=== PATIENT | male | born 1950 | race Caucasian/White ===

== ENCOUNTER → 2018-01-21 | Outpatient (CLI) | payer MEDICARE ==
[2018-01-21 07:13] LABS: Basophils % (A) 1 %; Eosinophils # (A) 0.2 k/uL (0-0.7); Eosinophils % (A) 3 %; HCT 46.5 % (39.0-53.0); HGB 14.9 gm/dL (13.0-17.5); Lymphocytes # (A) 1.5 k/uL (1.0-4.8); Lymphocytes % (A) 23 %; MCH 29.8 pg (25.0-35.0); MCV 93.1 fL (80.0-100.0); Monocytes # (A) 0.6 k/uL (0-1.0); Monocytes % (A) 9 %; Neutrophils # (A) 3.9 k/uL (1.3-7.7); Neutrophils % (A) 62 %; Platelet Count 158 k/uL (150-450); RBC 4.99 m/uL (4.30-5.90); RDW 12.8 % (11.5-15.5); WBC 6.3 k/uL (3.8-10.6)
[2018-01-21 07:18] LABS: ALT 32 U/L (21-72); AST 32 U/L (17-59); Albumin 4.2 g/dL (3.5-5.0); Alkaline Phosphatase 60 U/L (38-126); Anion Gap 6 mmol/L; Blood Urea Nitrogen 16 mg/dL (9-20); Calcium 9.4 mg/dL (8.4-10.2); Carbon Dioxide 34 mmol/L (22-30); Chloride 101 mmol/L (98-107); Cholesterol 194 mg/dL (<200); Glucose 91 mg/dL (74-99); HDL Cholesterol 66 mg/dL (40-60); LDL Cholesterol,Calculated 113 mg/dL (0-99); Potassium 4.1 mmol/L (3.5-5.1); Sodium 141 mmol/L (137-145); Total Bilirubin 0.6 mg/dL (0.2-1.3); Total Protein 6.8 g/dL (6.3-8.2); Triglycerides 76 mg/dL (<150)
[2018-01-21 07:51] LABS: Appearance,Urine Clear (Clear); Bilirubin,Urine Negative (Negative); Blood,Urine Negative (Negative); Color,Urine Light Yellow; Glucose,Urine (UA) Negative (Negative); Ketones,Urine Negative (Negative); Leukocyte Esterase,Urine Negative (Negative); Nitrite,Urine Negative (Negative); Protein,Urine Negative (Negative); Specific Gravity,Urine 1.011 (1.001-1.035); Urobilinogen,Urine <2.0 mg/dL (<2.0)
--- NOTE | 2018-01-21 13:30 | CT ---
EXAMINATION TYPE: CT abdomen pelvis w con DATE OF EXAM: 01/21/2018 COMPARISON: HISTORY: RLQ and groin pain for [address] DLP: 575.8 mGycm CONTRAST: CT scan of the abdomen and pelvis is performed with Oral Contrast and with IV Contrast, patient injec jazmine with 100 mL of Isovue 300. FINDINGS: LUNG BASES-: No visible nodule. No infiltrate. Cardiomegaly. LIVER/GB: There is a gallbladder polyp or soft stone noted. No space occupying hepatic lesion. Biju iary tree is of normal caliber. PANCREAS: No inflammation. No distinct mass. SPLEEN: No splenic enlargement. No lesion seen. ADRENALS: No nodule. No thickening. KIDNEYS/BLADDER: No hydronephrosis. No nephrolithiasis. Multiple simple appearing hepatic cysts are noted the largest within the upper pole of the right kidney measures 3.1 cm. Urinary bladder grossly unremarkable. BOWEL: There is evidence of an appendicolith without inflammatory change of the appendix. Appendicoli th measures 6.6 mm. Normal bowel caliber. No inflammation. Sigmoid diverticulosis without diverticu litis. GENITAL ORGANS: Enlargement of the prostate gland. LYMPH NODES: No greater than 1cm abdominal or pelvic lymph nodes are appreciated. AORTA: No significant abnormality. OSSEOUS STRUCTURES: No significant abnormality is seen. OTHER: Fat-containing bilateral inguinal hernias. IMPRESSION: 1. Appendicolith without evidence for inflammatory change of the appendix at this time. 2. Diverticulosis without diverticulitis. 3. Soft gallstone versus gallbladder polyp. 4. Prostate gland enlargement.
== END | disposition home or self-care (01) ==
LOC: RADCTMAIN 06:45
PROVIDERS: ATTEND Internal Medicine
DX: K57.30 Diverticulosis of large intestine without perforation or abscess without bleeding (principal); N40.0 Benign prostatic hyperplasia without lower urinary tract symptoms; K38.1 Appendicular concretions; R10.31 Right lower quadrant pain; E78.00 Pure hypercholesterolemia, unspecified
CPT/HCPCS: 80061; 80053; 85025; 81003; 74177; Q9967

== ENCOUNTER 2018-05-18 20:39 | Inpatient (IN) | payer MEDICARE ==
[2018-05-18] MEDS ORDERED: METOPROLOL TARTRATE 5 MG/5 ML VIAL IVP STA (20:56)
[2018-05-18] MEDS ORDERED: CLOPIDOGREL 75 MG TAB PO STA (20:57)
[2018-05-18] MEDS ORDERED: ASPIRIN 81 MG PO STA (20:57)
[2018-05-18] MEDS ORDERED: ATORVASTATIN 80 MG TAB PO STA (20:57)
[2018-05-18] MEDS ORDERED: HEPARIN SODIUM,PORCINE 5,000 UNIT/ML 1 ML VIAL IV STA (20:57)
[2018-05-18] MEDS ORDERED: NITROGLYCERIN-D5W PMX 50 MG in DEXTROSE/WATER 1 250ML.BAG IV ONE (21:12)
[2018-05-18 21:14] LABS: HCT 49.2 % (39.0-53.0); HGB 16.5 gm/dL (13.0-17.5); MCH 31.5 pg (25.0-35.0); MCHC 33.6 g/dL (31.0-37.0); MCV 93.7 fL (80.0-100.0); Mean Platelet Volume 9.3; Platelet Count 165 k/uL (150-450); RBC 5.25 m/uL (4.30-5.90); RDW 12.7 % (11.5-15.5); WBC 7.6 k/uL (3.8-10.6)
[2018-05-18 21:23] LABS: Prothrombin Time 10.2 sec (9.0-12.0)
[2018-05-18 21:25] LABS: ALT 53 U/L (21-72); AST 64 U/L (17-59); Albumin 4.5 g/dL (3.5-5.0); Alkaline Phosphatase 64 U/L (38-126); Anion Gap 6 mmol/L; Blood Urea Nitrogen 25 mg/dL (9-20); Calcium 9.8 mg/dL (8.4-10.2); Carbon Dioxide 30 mmol/L (22-30); Chloride 103 mmol/L (98-107); Glucose 130 mg/dL (74-99); Potassium 4.2 mmol/L (3.5-5.1); Sodium 139 mmol/L (137-145); Total Bilirubin 0.6 mg/dL (0.2-1.3); Total Protein 7.5 g/dL (6.3-8.2)
--- NOTE | 2018-05-18 21:25 | ED ---
Chest Pain HPI - General Chief Complaint: Chest Pain Stated Complaint: Chest Pain Time Seen by Provider: 05/18/18 20:39 Source: patient, family, RN notes reviewed Mode of arrival: ambulatory Limitations: no limitations - History of Present Illness Initial Comments: This is a 67-year-old male with a history of PVCs but no history of heart or lung disease he's a nonsmoker who is very active who does state he just [place] present the last week who states he started developing retrosternal chest discomfort around 8 PM this evening he came to the emergency department to get evaluated. It was 5/10 severity while in the triage jasso he collapsed was brought back trauma room #1 reveals found to be in a ventricular fibrillation arrest. CPR was initiated prior to this. Established that he was in ventricular fibrillation he was cardioverted 21 with CPR continued briefly until the patient awoke. He did remain awake alert oriented 4 afterwards. He states the pain was 5/10 prior to this he had no problems earlier today or earlier in the week. He had no recent fevers chills nausea vomiting sweats or other symptoms. MD Complaint: chest pain - Related Data Home Medications Medication Instructions Recorded Confirmed Aspirin [[place] Aspirin EC] 81 mg PO DAILY 05/18/18 05/18/18 Famotidine [Pepcid AC] 10 mg PO DAILY 05/18/18 05/18/18 NIFEdipine XL [Procardia XL] 30 mg PO DAILY 05/18/18 05/18/18 Simvastatin [Zocor] 40 mg PO HS 05/18/18 05/18/18 Allergies Allergy/AdvReac Type Severity Reaction Status Date / Time No Known Allergies Allergy Verified 05/18/18 21:13 Review of Systems ROS Statement: Those systems with pertinent positive or pertinent negative responses have been documented in the HPI. ROS Other: All systems not noted in ROS Statement are negative. EKG Findings - EKG Results: EKG: interpreted by [facility]A ( ST elevation seen in the anterior leads. The rate was 150. Interval 82 QRS 162 QT since QTC 302/477) Past Medical History Past Medical History: No Reported History History of Any Multi-Drug Resistant Organisms: None Reported Past Surgical History: Hernia Repair Past Psychological History: No Psychological Hx Reported Smoking Status: Never smoker Past Alcohol Use History: Occasional Past Drug Use History: None Reported General Exam - General Exam Comments Initial Comments: This is a well-developed well-nourished awake alert oriented 3 male Limitations: no limitations General appearance: alert, in no apparent distress Head exam: Present: atraumatic, normocephalic, normal inspection Eye exam: Present: normal appearance, PERRL, EOMI. Absent: scleral icterus, conjunctival injection, periorbital swelling ENT exam: Present: normal exam, mucous membranes moist Neck exam: Present: normal inspection. Absent: tenderness, meningismus, lymphadenopathy Respiratory exam: Present: normal lung sounds bilaterally. Absent: respiratory distress, wheezes, rales, rhonchi, stridor Cardiovascular Exam: Present: regular rate, normal rhythm, normal heart sounds. Absent: systolic murmur, diastolic murmur, rubs, gallop, clicks GI/Abdominal exam: Present: soft, normal bowel sounds. Absent: distended, tenderness, guarding, rebound, rigid Extremities exam: Present: normal inspection, full ROM, normal capillary refill. Absent: tenderness, pedal edema, joint swelling, calf tenderness Back exam: Present: normal inspection Neurological exam: Present: alert, oriented X3, CN II-XII intact Psychiatric exam: Present: normal affect, normal mood Skin exam: Present: warm, dry, intact, normal color. Absent: rash Course Vital Signs 05/18/18 05/18/18 05/18/18 20:43 21:10 21:25 Temperature 98.3 F Pulse Rate 77 70 68 Pulse Rate [ Designer/Writer ] Respiratory 18 19 19 Rate Blood Pressure 199/108 142/95 142/100 O2 Sat by Pulse 98 96 96 Oximetry 05/18/18 05/18/18 21:27 21:30 Temperature Pulse Rate 69 Pulse Rate [ 69 Designer/Writer ] Respiratory 18 Rate Blood Pressure 140/91 O2 Sat by Pulse 96 Oximetry - Reevaluation(s) Reevaluation #1: 05/18/18 21:22 Repeat EKG was performed showed a sinus rhythm of 93. Interval 142 QRS 110 QT since QTC 354/440 right atrial enlargement pulmonary disease pattern evidence of ST elevation in the V leads Chest Pain MDM - [facility] Did reevaluate the patient multiple occasions. He remains awake and alert his heart rate has normalized. He still demonstrates ST elevation on the monitor. Pain was down from 532/10. No diaphoresis no other abnormalities this time. Critical Care Time Critical Care Time: Yes Critical Care Time: 35 minutes of critical care time which includes initial presentation with evaluation and CPR with defibrillation, history physical labs x-rays multiple re -evaluations patient response to therapy discussion with the cardiac service, Dr. Durán, discussed with Dr. Bran, discussion with multiple T members and with some family. Also documentation the above. Disposition Clinical Impression: Ventricular fibrillation, ST elevation myocardial infarction (STEMI) Disposition: ADMITTED IP TO THIS [facility] Condition: Serious Referrals: Beny Hernandez MD [Primary Care Provider] - 1-2 days
--- NOTE | 2018-05-18 21:30 | XR ---
EXAMINATION TYPE: XR chest 1V portable DATE OF EXAM: 05/18/2018 COMPARISON: NONE HISTORY: Chest pain TECHNIQUE: Single frontal view of the chest is obtained. FINDINGS: There is no heart failure nor confluent pneumonic infiltrate. Costophrenic angles are anne r. There are chest leads. Bony thorax appears intact. IMPRESSION: No active cardiopulmonary disease.
[2018-05-18 21:48] LABS: Creatine Kinase MB 1.4 ng/mL (0.0-2.4); Troponin I 0.022 ng/mL (0.000-0.034)
[2018-05-18] MEDS ORDERED: MIDAZOLAM 2 MG/2 ML VIAL IVP ONE (21:48)
[2018-05-18] MEDS ORDERED: LIDOCAINE 1% 20 ML VIAL (10MG/ML) FOR IV START SQ ONE (21:49)
[2018-05-18] MEDS ORDERED: BIVALIRUDIN BOLUS 250 MG/50 ML IV ONE (21:53)
[2018-05-18] MEDS ORDERED: BIVALIRUDIN 250 MG in SODIUM CHLORIDE 0.9% 50 ML IV ONE (21:53)
[2018-05-18] MEDS ORDERED: IV FLUID CONTINUATION 450 ML IV ONE (21:57)
[2018-05-18] MEDS ORDERED: TICAGRELOR 90 MG TAB PO ONE (22:03)
[2018-05-18] MEDS ORDERED: NITROGLYCERIN 1000MCG/10ML SYRINGE INTRACORON ONE (22:06)
[2018-05-18] MEDS: MORPHINE SULFATE 4 MG/ML SYRINGE IVP ONE ×2 (22:08→22:38)
[2018-05-18] MEDS ORDERED: niCARdipine Syringe (1,000 mcg/10 mL) INTRACORON ONE (22:11)
[2018-05-18] MEDS ORDERED: IOPAMIDOL-370 125ML BTL INJ ONE (22:17)
[2018-05-18] MEDS ORDERED: IOPAMIDOL-370 100ML BTL INJ ONE (22:31)
[2018-05-18] MEDS ORDERED: NITROGLYCERIN SL TABS 0.4 MG TAB SUBLINGUAL PRN (23:04)
[2018-05-18] MEDS ORDERED: RX INFO: IV CONTRAST WAS GIVEN 1 EACH MISC MISCELLANE PRN (23:04)
[2018-05-18] MEDS ORDERED: MAG HYDROX/AL HYDROX/SIMETH 30 ML CUP PO PRN (23:04)
[2018-05-18] MEDS ORDERED: ZOLPIDEM 5 MG TAB PO PRN (23:04)
[2018-05-18] MEDS ORDERED: ATROPINE SULFATE 0.1 MG/ML 10ML SYRINGE IV PRN (23:04)
[2018-05-18 23:34] VITALS: BMI 23.5
[2018-05-18 23:42] LABS: Glucose,Whole Blood 123 mg/dL (75-99)
[2018-05-19] MEDS: ACETAMINOPHEN TAB 500 MG TAB PO PRN ×3 (01:20→20:40)
[2018-05-19 03:51] LABS: Basophils % (A) 0 %; Eosinophils # (A) 0.1 k/uL (0-0.7); Eosinophils % (A) 1 %; HCT 41.8 % (39.0-53.0); HGB 13.6 gm/dL (13.0-17.5); Lymphocytes # (A) 0.8 k/uL (1.0-4.8); Lymphocytes % (A) 8 %; MCHC 32.5 g/dL (31.0-37.0); MCV 95.3 fL (80.0-100.0); Mean Platelet Volume 8.8; Monocytes # (A) 0.6 k/uL (0-1.0); Monocytes % (A) 6 %; Neutrophils # (A) 8.1 k/uL (1.3-7.7); Neutrophils % (A) 84 %; Platelet Count 143 k/uL (150-450); RBC 4.39 m/uL (4.30-5.90); RDW 12.8 % (11.5-15.5); WBC 9.7 k/uL (3.8-10.6)
[2018-05-19 04:05] LABS: Anion Gap 6 mmol/L; Blood Urea Nitrogen 23 mg/dL (9-20); Carbon Dioxide 28 mmol/L (22-30); Chloride 102 mmol/L (98-107); Glucose 156 mg/dL (74-99); Potassium 3.8 mmol/L (3.5-5.1); Sodium 136 mmol/L (137-145)
[2018-05-19] MEDS ORDERED: Potassium Replacement Protocol 1 EACH MISC MISCELLANE PRN (05:44)
[2018-05-19] MEDS ORDERED: POTASSIUM CHLORIDE ER 20 MEQ TAB.ER PO SCH (06:00)
[2018-05-19] MEDS: SODIUM CHLORIDE 0.9% 1,000 ML IV SCH ×2 (06:22→12:35)
--- NOTE | 2018-05-19 07:14 | CC ---
CARDIAC CATHETERIZATION REPORT DATE OF SERVICE: 05/18/2018 PROCEDURE: 1. Left heart catheterization and coronary angiography. 2. PTCA and stenting of a totally occluded mid left anterior descending coronary artery performed in the setting of an acute ST-elevation AR with a drug-eluting stent. Reperfusion accomplished in 82 minutes. 3. PTCA and stenting of mid circumflex coronary artery with a drug-eluting stent. PERFORMED BY: Dr. Lovely Durán. The moderate conscious sedation time for the procedure was 61 minutes. Patient was administered a combination of Versed, fentanyl and Benadryl and his oxygen saturation, hemodynamics and EKG were monitored closely. 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 He was advised prompt cardiac catheterization and brought in for the procedure expeditiously. PROCEDURE NOTE: Under local anesthesia and strict aseptic precautions, a 6-Ukrainian introducer was placed in the right femoral artery. I started out with a standard left Thierno catheter but the guide support was insufficient. I switched over to a XBLAD 4.5 guide catheter. With this I selectively cannulated the left coronary artery. Coronary angiography revealed that the LAD was totally occluded after diagonal branch, which was diseased. There was also a significant circumflex lesion. I performed intervention first of the LAD. Using a run-through wire, I crossed the lesion. A predilatation of the total occlusion was performed with a 2.5 caliber 12 mm long Trek balloon. Subsequently the patient had significant ST elevation and chest pain with a lot of thrombus. The patient received Angiomax bolus and infusion. He also received 180 mg of Brilinta. I post dilated the stented area with a 3.5 caliber 12 mm long NC Trek balloon at 12 atmospheres. Excellent angiographic result with a CYRIL-3 flow was achieved. Patient was hemodynamically stable. His chest pain came down to a level of 1 to 2. He was feeling well. Hemodynamically stable. I then turned my attention to the circumflex which was a 99% lesion. The same wire was advanced and I kept the wire distal to the 95% stenosis. Predilatation was performed with a 2.5 caliber 12 mm balloon. I then deployed a 8 mm 2.75 caliber Xience stent and deployed this at 12 atmospheres. Excellent angiographic result was achieved. Patient had mild chest discomfort but no EKG changes. Subsequently I performed coronary angiography of the right coronary artery, which did not have significant disease and I also checked LV pressures with a pigtail catheter. Patient tolerated procedure well. The sheath was taken out and a Perclose device used to secure hemostasis. Because of mild oozing, I applied a FemoStop as well. The patient was sent to the ICU in a stable condition. Findings and results were discussed with the patient as well as his niece who was here and also I spoke to his by telephone. CARDIAC CATHETERIZATION FINDINGS: Left ventricular end-diastolic pressure was about 12 mmHg without any gradient across the aortic valve. CORONARY ANGIOGRAPHY FINDINGS: Coronary angiography findings revealed that left main coronary artery was widely patent without significant disease and bifurcated into a LAD and circumflex. Left anterior descending coronary artery was totally occluded in the mid portion after the origin of the diagonal branch that has about a 50% to 60% lesion with sluggish flow. Circumflex vessel was nondominant, has a single obtuse marginal that was tortuous, had 30% to 40% multiple narrowings, but a focal 95% stenosis was noted in the midportion, which was quite significant. Beyond it, there were 2 good-sized branches. There was a groove branch and also left atrial circumflex branch with minor irregularities. Right coronary artery was a very dominant vessel had about 35% in the proximal one third. Distally it bifurcated into a PDA and PLV, both of which supply a sizable amount of myocardium. No significant disease was noted in the dominant RCA. LEFT VENTRICULOGRAM: Left ventriculogram was not performed. LV pressures were normal without any gradient across the aortic valve. PCI of LAD was performed with a drug-eluting stent with excellent angiographic result. PCI of mid circumflex was performed with a drug-eluting stent with excellent angiographic result. MMODL / IJN: [id number] /
--- NOTE | 2018-05-19 07:20 | CONS ---
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 This gentleman is quite active, has no significant limitations at all. He hunts and does play hockey on a regular basis. He has hypertension and hypercholesterolemia for which he takes Procardia and simvastatin. He has had a stress test a few years ago that he cannot recall and it was normal. About a week ago he went [employer] hunting without any problems. Today while he was sitting and talking to his son on the phone, he developed uncomfortable feeling in the chest that seemed to persist. He came into the emergency room and while he was in the ER at the triage jasso he collapsed, was in ventricular fibrillation, was immediately resuscitated, shocked, had a CPR and subsequent EKG revealed anterior ST elevation and I was notified. I evaluated him in the emergency room. At the time of my evaluation, his pain was about 6/10. He was hemodynamically stable. EKG revealed anterior ST elevation. He indicated to me that prior to about 8:00 this evening, he did not have any chest discomfort. This was a sudden occurrence. He has a fairly active person. He has no other issues at this time. In February, he had a hernia operation performed. PAST MEDICAL HISTORY: 1. Hypertension. 2. Hyperlipidemia. 3. Status post bilateral inguinal hernia repair performed in February or so. MEDICATIONS: Medications include Procardia and simvastatin. Other medication details are unavailable. PHYSICAL EXAMINATION: On examination, blood pressure is 138/70, pulse rate was about 70 per minute. HEENT: Unremarkable. Fundus was not examined by me. Neck is supple. No JVD. I do not hear a carotid bruit. There is no thyromegaly. Heart exam reveals S1, S2 heard normally without a rub, murmur or gallop. Lungs are clear. Abdomen is soft, nontender. Lower extremities reveal normal pulses. No edema. Central nervous system is grossly within normal limits. EKG revealed sinus mechanism with anterior ST elevation suggestive of acute ST- elevation LA. IMPRESSION: 1. Acute anterior ST-elevation myocardial infarction. 2. Hypertension. 3. Hyperlipidemia. RECOMMENDATION: I am recommending immediate cardiac cath and PCI and proceeded to perform this expeditiously. MMODL / IJN: [id number] /
--- NOTE | 2018-05-19 07:59 | PN ---
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 On presentation to the emergency room, had a ventricular fibrillation cardiac arrest requiring CPR. He was found to have significant ST-segment elevation myocardial infarction, underwent cardiac catheterization, angioplasty and stenting by Dr. Lovely Durán and underwent stenting of the LAD as well as the left circumflex. He is doing well this morning. He has chest discomfort that is musculoskeletal on the right side. He is in sinus mechanism. There is no significant ventricular ectopic activity. His blood pressure is stable. His breathing is stable. He continues to be on aspirin once a day, Lipitor 80 mg daily, Brilinta 90 mg twice a day, lisinopril 10 mg daily, metoprolol tartrate 12.5 mg twice a day. PHYSICAL EXAMINATION: Blood pressure 136/80 with a heart rate in the 60s. LUNGS: Clear. HEART: Regular rate and rhythm. S1, S2. No S3. No rub appreciated. ABDOMEN: Soft, nontender. EXTREMITIES: No edema. Right groin hematoma. LAB DATA: Revealed BUN and creatinine 23 and 0.75. Troponin 66.7, hemoglobin 13.6. IMPRESSION: 1. Status post acute anterior myocardial infarction complicated by ventricular fibrillation cardiac arrest. 2. Status post stenting of left circumflex. 3. Hyperlipidemia. RECOMMENDATION: I will add to his regimen spironolactone 25 mg daily. Continue with his medical regimen. Obtain an echocardiogram with Doppler and depending on his progress, further recommendation will be made. MMODL / IJN: [id number] /
[2018-05-19] MEDS: SPIRONOLACTONE 25 MG TAB PO SCH (09:25)
[2018-05-19] MEDS: LISINOPRIL 10 MG TAB PO SCH (09:25)
[2018-05-19] MEDS: METOPROLOL TARTRATE 25 MG TAB PO SCH ×2 (09:25→20:39)
[2018-05-19] MEDS: ASPIRIN 81 MG PO SCH (09:25)
[2018-05-19] MEDS: TICAGRELOR 90 MG TAB PO SCH ×2 (09:25→20:40)
--- NOTE | 2018-05-19 10:09 | ECHOF ---
Referral Reason:Acute Ant STEMI S/P LAD,LCX PCI MEASUREMENTS -------- HEIGHT: 182.9 cm WEIGHT: 74.4 kg BP: 113/57 RVIDd: 2.5 cm (< 3.3) IVSd: 1.5 cm (0.6 - 1.1) LVIDd: 3.5 cm (3.9 - 5.3) LVPWd: 1.5 cm (0.6 - 1.1) IVSs: 1.5 cm LVIDs: 3.0 cm LVPWs: 1.6 cm LAESV Index (A-L): 27.13 ml/m Ao Diam: 3.9 cm (2.0 - 3.7) AV Cusp: 1.9 cm (1.5 - 2.6) LA Diam: 2.6 cm (2.7 - 3.8) MV EXCURSION: 15.618 mm (> 18.000) MV EF SLOPE: 68 mm/s (70 - 150) EPSS: 1.1 cm MV E Carl: 0.41 m/s MV DecT: 268 ms MV A Carl: 0.92 m/s MV E/A Ratio: 0.44 AR PHT: 682 ms RAP: 5.00 mmHg RVSP: 12.89 mmHg FINDINGS -------- Sinus rhythm. This was a technically good study. The left ventricular size is normal. There is moderate concentric left ventricular hypertrophy. O verall left ventricular systolic function is moderately impaired with, an EF between 35 - 40 %. Bas al inferoseptal LV wall motion is hypokinetic. Mid inferoseptal LV wall motion is hypokinetic. Apical anterior LV wall motion is hypokinetic. Apical lateral LV wall motion is hypokinetic. Ap ical inferior LV wall motion is hypokinetic. Apical septum LV wall motion is hypokinetic. The right ventricle is normal in size and function. Normal LA size by volume 22+/-6 ml/m2. The right atrium is normal in size. Aortic valve is trileaflet and is mildly thickened. There is [id number] aortic regurgitation. The mitral valve leaflets are mildly thickened. Mild mitral annular calcification present. Mild m itral regurgitation is present. Mild tricuspid regurgitation present. The right ventricular systolic pressure, as measured by Doppl er, is 12.89mmHg. Pulmonic valve appears structurally normal. 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 Normal inferior vena cava with normal inspiratory collapse consistent with estimated right atrial pre ssure of 5 mmHg. The pericardium is normal. CONCLUSIONS -------- 1. Sinus rhythm. 2. This was a technically good study. 3. The left ventricular size is normal. 4. There is moderate concentric left ventricular hypertrophy. 5. Overall left ventricular systolic function is moderately impaired with, an EF between 35 - 40 %. 6. Basal inferoseptal LV wall motion is hypokinetic. 7. Mid inferoseptal LV wall motion is hypokinetic. 8. Apical anterior LV wall motion is hypokinetic. 9. Apical lateral LV wall motion is hypokinetic. 10. Apical inferior LV wall motion is hypokinetic. 11. Apical septum LV wall motion is hypokinetic. 12. The right ventricle is normal in size and function. 13. Normal LA size by volume 22+/-6 ml/m2. 14. The right atrium is normal in size. 15. Aortic valve is trileaflet and is mildly thickened. 16. There is [id number] aortic regurgitation. 17. The mitral valve leaflets are mildly thickened. 18. Mild mitral annular calcification present. 19. Mild mitral regurgitation is present. 20. Mild tricuspid regurgitation present. 21. The right ventricular systolic pressure, as measured by Doppler, is 12.89mmHg. 22. Pulmonic valve appears structurally normal. 23. 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 Normal inferior vena cava with normal inspiratory collapse consistent with estimated right atrial pressure of 5 mmHg. 25. The pericardium is normal. FLOOR SANDING MACHINE OPERATOR: Evelyn yKle RDCS
[2018-05-19 12:26] LABS: Glucose,Whole Blood 106 mg/dL (75-99)
--- NOTE | 2018-05-19 13:21 | P.HPIM ---
History of Present Illness H&P Date: 05/19/18 Chief Complaint: Chest pain This is a 67-year-old male patient of Dr. Hernandez and Dr. Cortes with a past medical history of hypertension, hyperlipidemia, gastroesophageal reflux disease. Patient states that he had a stress test a few years ago because he was having PVCs and this was normal. He has been following with Dr. Cortes as he has significant family history of coronary artery disease. He recently changed his statin but no other medication changes. He was sitting watching TV at 7:45 PM and developed chest pain that was in the midsternal area. He said was a sudden onset. He stood up and walked in the house but it did not go away so he changed his falls and drove himself into [facility] emergency center for evaluation. He was assisted at the door and was put in a wheelchair and subsequent after that passed out. He was found to be in ventricular fibrillation and full arrest and CPR was initiated. Patient was cardioverted twice and then he woke. He went to the [facility] under the care of Dr. LIVE Durán for emergent heart catheterization found to have LAD totally occluded in the midportion, diagonal branch 50-60% lesion, circumflex 30-40% with 95% stenosis in the midportion. PCI of the LAD with a drug-eluting stent was done and PCI of the mid circumflex with a drug-eluting stent. Patient was then admitted into the intensive care unit. This morning, patient denies having any chest pain, shortness of breath, lightheadedness or dizziness. He does have some right sided chest soreness which he believes is sore from compressions or shock. Echocardiogram reveals moderate concentric left ventricular hypertrophy, EF 35- 40%, LV hypokinetic, moderate aortic regurgitation, mild mitral regurgitation, mild tricuspid regurgitation Review of Systems All systems: negative Constitutional: Denies anorexia, Denies chills, Denies fatigue, Denies fever, Denies lethargy, Denies poor appetite, Denies weakness Eyes: denies blurred vision, denies pain Ears, nose, mouth and throat: Denies headache, Denies hoarseness, Denies sore throat, Denies vertigo Cardiovascular: Reports chest pain, Reports syncope, Denies decreased exercise tolerance, Denies dyspnea on exertion, Denies edema, Denies leg edema, Denies lightheadedness, Denies palpitations, Denies shortness of breath Respiratory: Denies cough, Denies cough with sputum, Denies dyspnea, Denies excessive sputum, Denies hemoptysis, Denies home oxygen, Denies wheezing Gastrointestinal: Denies abdominal pain, Denies diarrhea, Denies nausea, Denies vomiting Genitourinary: Denies dysuria Musculoskeletal: Denies frequent falls, Denies gait dysfunction, Denies muscle weakness, Denies myalgias Integumentary: Denies pruritus, Denies rash, Denies wounds Neurological: Denies change in mentation, Denies confusion, Denies gait dysfunction, Denies numbness, Denies weakness Psychiatric: Denies anxiety, Denies depression Endocrine: Denies fatigue, Denies weight change Past Medical History Past Medical History: Coronary Artery Disease (CAD), GERD/Reflux, Hyperlipidemia , Hypertension, Myocardial Infarction (CA) Last Myocardial Infarction Date:: 05/18/2018 History of Any Multi-Drug Resistant Organisms: None Reported Past Surgical History: Hernia Repair, Orthopedic Surgery Additional Past Surgical History / Comment(s): Rt knee arthroscopy > 15 years, stent to the LAD and left circumflex 05/2018 Past Anesthesia/Blood Transfusion Reactions: No Reported Reaction Past Psychological History: No Psychological Hx Reported Smoking Status: Never smoker Past Alcohol Use History: Occasional Additional Past Alcohol Use History / Comment(s): Patient is a lifelong nonsmoker, no illicit drug use. He drinks 1-2 beers per week. He lives at home with his . 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 Past Drug Use History: None Reported - Past Family History Father Family Medical History: Cancer, Myocardial Infarction (CA) Additional Family Medical History / Comment(s): Father and Fraternal grandfather both at age 62 of CA. Mother Additional Family Medical History / Comment(s): Mother at age 76 from leukemia with history of diabetes. Sister(s) Additional Family Medical History / Comment(s): Patient has one sister with prediabetes. Patient does not have any brothers. Patient has 1 son and 1 daughter with no major medical problems. Medications and Allergies Home Medications Medication Instructions Recorded Confirmed Type Aspirin [[place] Aspirin EC] 81 mg PO DAILY 05/18/18 05/18/18 History Famotidine [Pepcid AC] 10 mg PO DAILY 05/18/18 05/18/18 History NIFEdipine XL [Procardia XL] 30 mg PO DAILY 05/18/18 05/18/18 History Simvastatin [Zocor] 40 mg PO HS 05/18/18 05/18/18 History Allergies Allergy/AdvReac Type Severity Reaction Status Date / Time No Known Allergies Allergy Verified 05/18/18 21:13 Physical Exam Vitals: Vital Signs Temp Pulse Pulse Resp BP BP Pulse Ox 05/19/18 10:00 62 20 150/89 98 05/19/18 09:00 64 20 165/98 98 05/19/18 08:00 65 12 155/93 97 05/19/18 07:00 70 12 141/83 97 05/19/18 06:00 60 12 148/91 98 05/19/18 05:00 57 L 13 148/91 98 05/19/18 04:30 53 L 12 142/83 98 05/19/18 04:00 97.9 F 61 17 136/83 98 05/19/18 03:15 57 L 15 127/79 97 05/19/18 02:45 58 L 12 136/86 97 05/19/18 02:30 60 14 122/82 95 05/19/18 02:15 62 13 135/78 97 05/19/18 02:00 61 13 136/81 97 05/19/18 01:45 59 L 13 144/86 98 05/19/18 01:30 62 14 141/81 97 05/19/18 01:15 59 L 15 142/85 97 05/19/18 01:00 59 L 16 98 05/19/18 00:45 60 17 137/86 98 05/19/18 00:30 52 L 12 119/77 97 05/19/18 00:15 52 L 15 135/91 96 05/19/18 00:00 98.2 F 61 15 142/89 97 05/18/18 23:54 60 15 98 05/18/18 23:50 64 14 142/89 97 05/18/18 23:40 62 8 L 141/92 97 05/18/18 23:30 63 10 L 140/89 97 05/18/18 23:20 66 15 140/89 97 05/18/18 23:15 17 05/18/18 21:50 97.8 F 14 141/92 98 05/18/18 21:30 70 11 L 142/100 96 05/18/18 21:27 69 05/18/18 21:25 68 19 142/100 96 05/18/18 21:20 67 10 L 142/92 96 05/18/18 21:10 72 16 143/94 94 L 05/18/18 21:09 70 10 L 143/94 97 05/18/18 21:05 72 19 143/94 96 05/18/18 21:00 68 20 162/107 95 05/18/18 20:54 75 23 157/89 96 05/18/18 20:43 98.3 F 77 18 199/108 98 Intake and Output 05/18/18 05/19/18 05/19/18 22:59 06:59 14:59 Intake Total 300 600 300 Output Total 350 200 Balance -50 400 300 Intake: IV 300 600 300 Sodium Chloride 0.9% 1, 600 300 000 ml @ 75 mls/hr IV . [id number] [facility] Rx#:[id number] Output: Urine 350 200 Other: Weight 74.389 kg Gen: This is a 67-year-old male patient. He is in bed and appears to be comfortable in the ICU. No acute distress is noted. HEENT: Head is atraumatic, normocephalic. Pupils equal, round. Sclerae is anicteric. Conjunctiva pink. Mucous murmurs of the mouth are moist. NECK: Supple. No JVD. No lymphadenopathy. No thyromegaly. LUNGS: Clear to auscultation. No wheezes or rhonchi. No intercostal retractions. HEART: Regular rate and rhythm. No murmur. ABDOMEN: Soft. Bowel sounds are present. No masses. No tenderness. EXTREMITIES: No pedal edema. No calf tenderness. Dorsalis pedis +2 bilaterally. NEUROLOGICAL: Patient is awake, alert and oriented x3. Cranial nerves 2 through 12 are grossly intact. Results CBC & Chem 7: 05/19/18 03:40 05/19/18 03:40 Labs: Abnormal Lab Results - Last 24 Hours (Table) 05/18/18 05/18/18 05/19/18 Range/Units 21:07 23:15 03:40 Plt Count (150-450) k/uL Neutrophils # (1.3-7.7) k/uL Lymphocytes # (1.0-4.8) k/uL Sodium (137-145) mmol/L BUN 25 H (9-20) mg/dL Glucose 130 H (74-99) mg/dL POC Glucose (mg/dL) 123 H (75-99) mg/dL AST 64 H (17-59) U/L Troponin I 66.700 H* (0.000-0.034) ng/mL 05/19/18 05/19/18 05/19/18 Range/Units 03:40 03:40 08:56 Plt Count 143 L (150-450) k/uL Neutrophils # 8.1 H (1.3-7.7) k/uL Lymphocytes # 0.8 L (1.0-4.8) k/uL Sodium 136 L (137-145) mmol/L BUN 23 H (9-20) mg/dL Glucose 156 H (74-99) mg/dL POC Glucose (mg/dL) (75-99) mg/dL AST (17-59) U/L Troponin I 52.700 H* (0.000-0.034) ng/mL Thrombosis Risk Factor Assmnt - DVT/VTE Prophylaxis DVT/VTE Prophylaxis: Pharmacologic Prophylaxis ordered - Choose All That Apply Any of the Below Risk Factors Present?: Yes Each Factor Represents 1 point: Acute CA Other Risk Factors: No Thrombosis Risk Factor Assessment Total Risk Factor Score: 1 Thrombosis Risk Factor Assessment Level: Low Risk Assessment and Plan Plan: 1. Acute anterior wall myocardial infarction complicated by ventricular fibrillation and cardiac arrest requiring CPR and electrocardioversion, status post stenting of the LAD and left circumflex. Continue aspirin 81 mg daily, atorvastatin 80 mg at bedtime, lisinopril increased to 10 mg daily, Lopressor 12.5 mg twice daily, Aldactone 25 mg daily, Brilinta 90 mg twice daily 2. Hyperlipidemia. Continue Lipitor 80 mg daily. 3. Hypertension. Continue lisinopril, Lopressor, Aldactone. 4. Gastroesophageal reflux disease. Continue Pepcid. Patient will be admitted to the hospital for a minimum of 2 night stay. Discharge plan: return home Impression and plan of care have been directed as dictated by the signing physician. Iza Dunlap nurse practitioner acting as scribe for signing physician.
[2018-05-19] MEDS: ATORVASTATIN 80 MG TAB PO SCH (20:39)
[2018-05-20] MEDS: ACETAMINOPHEN TAB 500 MG TAB PO PRN ×4 (03:36→22:05)
[2018-05-20 04:43] LABS: Anion Gap 4 mmol/L; Blood Urea Nitrogen 16 mg/dL (9-20); Calcium 8.6 mg/dL (8.4-10.2); Carbon Dioxide 28 mmol/L (22-30); Chloride 105 mmol/L (98-107); Glucose 106 mg/dL (74-99); Potassium 3.9 mmol/L (3.5-5.1); Sodium 137 mmol/L (137-145)
--- NOTE | 2018-05-20 08:29 | PN ---
PROGRESS NOTE Mr. Novoa is a 67-year-old male who has a history of hyperlipidemia, presented with an acute anterior myocardial infarction complicated by ventricular fibrillation and ventricular tachycardia. He underwent stenting of the LAD and the left circumflex. He is doing well this morning. He has some right-sided chest discomfort related to the CPR. He denies any breathing problem. No dizziness. No palpitation. He denies any nausea. His breathing is stable otherwise. He continued be on aspirin once a day, Lipitor 80 mg daily, Zestril 10 mg daily, metoprolol tartrate 12.5 mg twice a day, spironolactone 25 mg daily and Brilinta 90 mg twice a day. PHYSICAL EXAMINATION: Blood pressure 124/70 with the heart rate in the 60s. LUNGS: Clear. HEART: Regular rate and rhythm. S1, S2. No S3. No rub. ABDOMEN: Soft, nontender. Right Groin: No hematoma. LAB DATA: Peak troponin 66.7. BUN and creatinine 16 and 0.79. Potassium 3.9. EKG reveals sinus mechanism with evolving anterior wall myocardial infarction with preserved R-wave in lead V3 on. His echocardiogram revealed segmental wall motion abnormality consistent with his prior myocardial infarction with ejection fraction of 35% to 40% IMPRESSION: 1. Status post anterior myocardial infarction with stenting of the left anterior descending artery. 2. Ventricular tachycardia and fibrillation on presentation. 3. Ischemic cardiomyopathy hopefully with a myocardium. 4. History of hyperlipidemia. RECOMMENDATION: I will increase the dose of his beta luis to 25 mg twice a day. Patient will be transferred to telemetry floor today. His level of activity will be increased. If he remains stable, he may be able to be discharged home in the next 24 to 48 hours. MMODL / IJN: [id number] /
[2018-05-20] MEDS: METOPROLOL TARTRATE 25 MG TAB PO SCH ×2 (09:02→22:07)
[2018-05-20] MEDS: LISINOPRIL 10 MG TAB PO SCH (09:03)
[2018-05-20] MEDS: ASPIRIN 81 MG PO SCH (09:03)
[2018-05-20] MEDS: FAMOTIDINE 20 MG TAB PO SCH (09:03)
[2018-05-20] MEDS: TICAGRELOR 90 MG TAB PO SCH ×2 (09:03→22:07)
[2018-05-20] MEDS: SPIRONOLACTONE 25 MG TAB PO SCH (09:03)
--- NOTE | 2018-05-20 15:48 | P.PN ---
Subjective Progress Note Date: 05/20/18 This is a 67-year-old male patient of Dr. Hernandez and Dr. Cortes with a past medical history of hypertension, hyperlipidemia, gastroesophageal reflux disease. Patient states that he had a stress test a few years ago because he was having PVCs and this was normal. He has been following with Dr. Cortes as he has significant family history of coronary artery disease. He recently changed his statin but no other medication changes. He was sitting watching TV at 7:45 PM and developed chest pain that was in the midsternal area. He said was a sudden onset. He stood up and walked in the house but it did not go away so he changed his falls and drove himself into [facility] emergency center for evaluation. He was assisted at the door and was put in a wheelchair and subsequent after that passed out. He was found to be in ventricular fibrillation and full arrest and CPR was initiated. Patient was cardioverted twice and then he woke. He went to the [facility] under the care of Dr. LIVE Durán for emergent heart catheterization found to have LAD totally occluded in the midportion, diagonal branch 50-60% lesion, circumflex 30-40% with 95% stenosis in the midportion. PCI of the LAD with a drug-eluting stent was done and PCI of the mid circumflex with a drug-eluting stent. Patient was then admitted into the intensive care unit. This morning, patient denies having any chest pain, shortness of breath, lightheadedness or dizziness. He does have some right sided chest soreness which he believes is sore from compressions or shock. Echocardiogram reveals moderate concentric left ventricular hypertrophy, EF 35- 40%, LV hypokinetic, moderate aortic regurgitation, mild mitral regurgitation, mild tricuspid regurgitation 05/20: Patient remains in intensive care unit. He has been cleared by cardiology for transfer to the cardiac stepdown unit which will happen today. He only has chest pain to the right ribs secondary to compressions or cardioversion. No other types of chest pain. He denies any shortness of breath. He has been ambulating multiple times around the unit without lightheadedness or dizziness. Vital signs have been stable. Patient is been afebrile. Heart rate running in the 50s and 60s. Pulse ox 97% on room air. Anticipate possible discharge tomorrow or Wednesday. Patient's is at the bedside and family in the waiting room. All questions have been answered and patient verbalizes understanding. Review Of Systems: Constitutional: No fever, no chills, no night sweats. No weight change. No weakness, fatigue or lethargy. No daytime sleepiness. EENT: No headache. No blurred vision or double vision, no loss of vision. No loss of Hearing, no ringing in the ears, no dizziness. No nasal drainage or congestion. No epistaxis. No sore throat. Lungs: No shortness of breath, cough, no sputum production. No wheezing. Cardiovascular: +chest pain, no lower extremity edema. No palpitations. No paroxysmal nocturnal dyspnea. No orthopnea. No lightheadedness or dizziness. No syncopal episodes. Abdominal: No abdominal pain. No nausea, vomiting. No diarrhea. No constipation. No bloody or tarry stools.. No loss of appetite. Genitourinary: No dysuria, increased frequency, urgency. No urinary retention. Musculoskeletal: No myalgias. No muscle weakness, no gait dysfunction, no frequent falls. No back pain. No neck pain. Integumentary: No wounds, no lesions. No rash or pruritus. No unusual bruising. No change in hair or nails. Neurologic: No aphasia. No facial droop. No change in mentation. No head injury. No headache. No paralysis. No paresthesia. Psychiatric: No depression. No anxiety. No mood swings. Endocrine: No abnormal blood sugars. No weight change. No excessive sweating or thirst. No cold intolerance. Objective - Vital Signs Vital signs: Vital Signs Temp 97.8 F 05/20/18 08:00 Pulse 61 05/20/18 09:01 Resp 13 05/20/18 09:01 BP 124/73 05/20/18 09:01 Pulse Ox 97 05/20/18 09:01 Intake & Output 05/19/18 05/20/18 05/20/18 18:59 06:59 18:59 Intake Total 900 475 Output Total 425 Balance 900 50 Weight 74.389 kg 75.8 kg Intake: IV 900 225 Sodium Chloride 0.9% 1, 900 225 000 ml @ 75 mls/hr IV . [id number] [facility] Rx#:[id number] Oral 250 Output: Urine 425 Other: Voiding Method Urinal Urinal # Voids 2 0 0 # Bowel Movements 1 1 - Exam Gen: This is a 67-year-old male patient. He is in recliner at the bedside and appears to be comfortable in the ICU. No acute distress is noted. HEENT: Head is atraumatic, normocephalic. Pupils equal, round. Sclerae is anicteric. Conjunctiva pink. Mucous murmurs of the mouth are moist. NECK: Supple. No JVD. No lymphadenopathy. No thyromegaly. LUNGS: Clear to auscultation. No wheezes or rhonchi. No intercostal retractions. HEART: Regular rate and rhythm. No murmur. ABDOMEN: Soft. Bowel sounds are present. No masses. No tenderness. EXTREMITIES: No pedal edema. No calf tenderness. Dorsalis pedis +2 bilaterally. NEUROLOGICAL: Patient is awake, alert and oriented x3. Cranial nerves 2 through 12 are grossly intact. - Labs CBC & Chem 7: 05/19/18 03:40 05/20/18 04:02 Labs: Abnormal Lab Results - Last 24 Hours (Table) 05/19/18 05/20/18 Range/Units 12:00 04:02 Glucose 106 H (74-99) mg/dL POC Glucose (mg/dL) 106 H (75-99) mg/dL Assessment and Plan Plan: 1. Acute anterior wall myocardial infarction complicated by ventricular fibrillation and cardiac arrest requiring CPR and electrocardioversion, status post stenting of the LAD and left circumflex. Continue aspirin 81 mg daily, atorvastatin 80 mg at bedtime, lisinopril increased to 10 mg daily, Lopressor 12.5 mg twice daily, Aldactone 25 mg daily, Brilinta 90 mg twice daily. Transfer to cardiac stepdown unit 2. Hyperlipidemia. Continue Lipitor 80 mg daily. 3. Hypertension. Continue lisinopril, Lopressor, Aldactone. 4. Gastroesophageal reflux disease. Continue Pepcid. 5. Right-sided rib pain secondary to compressions and cardioversion. Discharge plan: return home on Wednesday or Wednesday. Impression and plan of care have been directed as dictated by the signing physician. Iza Dunlap nurse practitioner acting as scribe for signing physician.
[2018-05-20] MEDS: ATORVASTATIN 80 MG TAB PO SCH (22:07)
[2018-05-21 07:05] LABS: Anion Gap 2 mmol/L; Blood Urea Nitrogen 16 mg/dL (9-20); Calcium 8.9 mg/dL (8.4-10.2); Carbon Dioxide 32 mmol/L (22-30); Chloride 105 mmol/L (98-107); Glucose 94 mg/dL (74-99); Potassium 4.1 mmol/L (3.5-5.1); Sodium 139 mmol/L (137-145)
[2018-05-21] MEDS: ACETAMINOPHEN TAB 500 MG TAB PO PRN ×3 (07:14→22:51)
[2018-05-21] MEDS: LISINOPRIL 10 MG TAB PO SCH (08:56)
[2018-05-21] MEDS: TICAGRELOR 90 MG TAB PO SCH ×2 (08:57→21:22)
[2018-05-21] MEDS: SPIRONOLACTONE 25 MG TAB PO SCH (08:57)
[2018-05-21] MEDS: FAMOTIDINE 20 MG TAB PO SCH (08:57)
[2018-05-21] MEDS: METOPROLOL TARTRATE 25 MG TAB PO SCH ×2 (08:57→21:22)
[2018-05-21] MEDS: ASPIRIN 81 MG PO SCH (08:57)
[2018-05-21 09:18] VITALS: RESP 20
--- NOTE | 2018-05-21 15:38 | P.PN ---
Subjective Progress Note Date: 05/21/18 This is a pleasant 67-year-old gentleman with history of hyperlipidemia. Presented to the emergency department with acute anterior myocardial infarction complicated by ventricular fibrillation and ventricular tachycardia. Cardiac catheterization with stenting of LAD and left circumflex. He is complaining of right sided rib discomfort related to CPR. Overall he is doing fairly well. He is tired. He is of difficulty breathing, dizziness or palpitations. He's had no dark nausea or vomiting. He's been up ambulating. He is currently on aspirin 81 mg by mouth daily, atorvastatin 80 mg by mouth daily at bedtime, Zestril 10 mg by mouth daily, metoprolol tartrate 25 mg by mouth twice a day, Aldactone 25 mg daily and Brilinta 90mg BID. Echocardiogram with Doppler did show an ejection fraction of 35-40% with segmental wall motion abnormality consistent with prior MO. Objective - Vital Signs Vital signs: Vital Signs Temp 98.0 F 05/21/18 12:00 Pulse 64 05/21/18 12:00 Resp 20 05/21/18 12:00 BP 135/80 05/21/18 12:00 Pulse Ox 98 05/21/18 12:00 Intake & Output 05/20/18 05/21/18 05/21/18 18:59 06:59 18:59 Intake Total 400 200 240 Balance 400 200 240 Weight 76.2 kg Intake: Oral 400 200 240 Other: Voiding Method Urinal Urinal # Voids 3 1 2 # Bowel Movements 2 - Exam PHYSICAL EXAMINATION: HEENT: Head is atraumatic, normocephalic. Pupils equal, round. Neck is supple. There is no elevated jugular venous pressure. HEART EXAMINATION: Heart sounds regular, S1 and S2 normal. No murmur or gallop heard. CHEST EXAMINATION: Lungs are clear to auscultation and precussion. No chest wall tenderness is noted on palpation or with deep breathing. ABDOMEN: Soft, nontender. Bowel sounds are heard. No organomegaly noted. EXTREMITIES: 2+ peripheral pulses with no evidence of peripheral edema and no calf tenderness noted. Right groin puncture site with ecchymosis, soft without hematoma.. NEUROLOGIC patient is awake, alert and oriented x3. . - Labs CBC & Chem 7: 05/19/18 03:40 05/21/18 06:24 Labs: Abnormal Lab Results - Last 24 Hours (Table) 05/21/18 Range/Units 06:24 Carbon Dioxide 32 H (22-30) mmol/L Assessment and Plan Assessment: #1 status post anterior STEMI with stenting of the LAD #2 ventricular tachycardia and fibrillation presentation, status post cardiopulmonary resuscitation #3 ischemic cardiomyopathy #4 hypertension #5 hyperlipidemia, according to patient most recent LDL 151 done 2 weeks ago. Plan: From cardiology's perspective, medications reviewed and we will continue the same. He was advised to continue ambulating the hallways. If he remains stable anticipate discharge tomorrow morning. CVOR NURSE note has been reviewed, I agree with a documented findings and plan of care. Patient was seen and examined.
--- NOTE | 2018-05-21 16:06 | P.PN ---
Subjective Progress Note Date: 05/21/18 This is a 67-year-old male patient of Dr. Hernandez and Dr. Cortes with a past medical history of hypertension, hyperlipidemia, gastroesophageal reflux disease. Patient states that he had a stress test a few years ago because he was having PVCs and this was normal. He has been following with Dr. Cortes as he has significant family history of coronary artery disease. He recently changed his statin but no other medication changes. He was sitting watching TV at 7:45 PM and developed chest pain that was in the midsternal area. He said was a sudden onset. He stood up and walked in the house but it did not go away so he changed his falls and drove himself into [facility] emergency center for evaluation. He was assisted at the door and was put in a wheelchair and subsequent after that passed out. He was found to be in ventricular fibrillation and full arrest and CPR was initiated. Patient was cardioverted twice and then he woke. He went to the [facility] under the care of Dr. LIVE Druán for emergent heart catheterization found to have LAD totally occluded in the midportion, diagonal branch 50-60% lesion, circumflex 30-40% with 95% stenosis in the midportion. PCI of the LAD with a drug-eluting stent was done and PCI of the mid circumflex with a drug-eluting stent. Patient was then admitted into the intensive care unit. This morning, patient denies having any chest pain, shortness of breath, lightheadedness or dizziness. He does have some right sided chest soreness which he believes is sore from compressions or shock. Echocardiogram reveals moderate concentric left ventricular hypertrophy, EF 35- 40%, LV hypokinetic, moderate aortic regurgitation, mild mitral regurgitation, mild tricuspid regurgitation 05/20: Patient remains in intensive care unit. He has been cleared by cardiology for transfer to the cardiac stepdown unit which will happen today. He only has chest pain to the right ribs secondary to compressions or cardioversion. No other types of chest pain. He denies any shortness of breath. He has been ambulating multiple times around the unit without lightheadedness or dizziness. Vital signs have been stable. Patient is been afebrile. Heart rate running in the 50s and 60s. Pulse ox 97% on room air. Anticipate possible discharge tomorrow or Wednesday. Patient's is at the bedside and family in the waiting room. All questions have been answered and patient verbalizes understanding. 05/21: Patient is sitting up in a chair in no apparent distress he denies any chest pain, shortness of breath, he has no abdominal pain, he had an episode of diarrhea earlier today has no blood in the stool or black tarry stool, his anticipating Discharge tomorrow morning. Review Of Systems: Constitutional: No fever, no chills, no night sweats. No weight change. No weakness, fatigue or lethargy. No daytime sleepiness. EENT: No headache. No blurred vision or double vision, no loss of vision. No loss of Hearing, no ringing in the ears, no dizziness. No nasal drainage or congestion. No epistaxis. No sore throat. Lungs: No shortness of breath, cough, no sputum production. No wheezing. Cardiovascular: +chest pain, no lower extremity edema. No palpitations. No paroxysmal nocturnal dyspnea. No orthopnea. No lightheadedness or dizziness. No syncopal episodes. Abdominal: No abdominal pain. No nausea, vomiting. No diarrhea. No constipation. No bloody or tarry stools.. No loss of appetite. Genitourinary: No dysuria, increased frequency, urgency. No urinary retention. Musculoskeletal: No myalgias. No muscle weakness, no gait dysfunction, no frequent falls. No back pain. No neck pain. Integumentary: No wounds, no lesions. No rash or pruritus. No unusual bruising. No change in hair or nails. Neurologic: No aphasia. No facial droop. No change in mentation. No head injury. No headache. No paralysis. No paresthesia. Psychiatric: No depression. No anxiety. No mood swings. Endocrine: No abnormal blood sugars. No weight change. No excessive sweating or thirst. No cold intolerance. Objective - Vital Signs Vital signs: Vital Signs Temp 98.0 F 05/21/18 12:00 Pulse 64 05/21/18 12:00 Resp 20 05/21/18 12:00 BP 135/80 05/21/18 12:00 Pulse Ox 98 05/21/18 12:00 Intake & Output 05/20/18 05/21/18 05/21/18 18:59 06:59 18:59 Intake Total 400 200 240 Balance 400 200 240 Weight 76.2 kg Intake: Oral 400 200 240 Other: Voiding Method Urinal Urinal # Voids 3 1 2 # Bowel Movements 2 - Exam Gen: This is a 67-year-old male patient. He is in recliner at the bedside and appears to be comfortable in the ICU. No acute distress is noted. HEENT: Head is atraumatic, normocephalic. Pupils equal, round. Sclerae is anicteric. Conjunctiva pink. Mucous murmurs of the mouth are moist. NECK: Supple. No JVD. No lymphadenopathy. No thyromegaly. LUNGS: Clear to auscultation. No wheezes or rhonchi. No intercostal retractions. HEART: Regular rate and rhythm. No murmur. ABDOMEN: Soft. Bowel sounds are present. No masses. No tenderness. EXTREMITIES: No pedal edema. No calf tenderness. Dorsalis pedis +2 bilaterally. NEUROLOGICAL: Patient is awake, alert and oriented x3. Cranial nerves 2 through 12 are grossly intact. - Labs CBC & Chem 7: 05/19/18 03:40 05/21/18 06:24 Labs: Abnormal Lab Results - Last 24 Hours (Table) 05/21/18 Range/Units 06:24 Carbon Dioxide 32 H (22-30) mmol/L Assessment and Plan Assessment: Assessment and Plan Plan: 1. Acute anterior wall myocardial infarction complicated by ventricular fibrillation and cardiac arrest requiring CPR and electrocardioversion, status post stenting of the LAD and left circumflex. Continue aspirin 81 mg daily, atorvastatin 80 mg at bedtime, lisinopril increased to 10 mg daily, Lopressor 12.5 mg twice daily, Aldactone 25 mg daily, Brilinta 90 mg twice daily. Transfer to cardiac stepdown unit 2. Hyperlipidemia. Continue Lipitor 80 mg daily. 3. Hypertension. Continue lisinopril, Lopressor, Aldactone. 4. Gastroesophageal reflux disease. Continue Pepcid. 5. Right-sided rib pain secondary to compressions and cardioversion. 6. Home tomorrow morning.
[2018-05-21] MEDS: ATORVASTATIN 80 MG TAB PO SCH (21:22)
[2018-05-22] MEDS: METOPROLOL TARTRATE 25 MG TAB PO SCH (08:27)
[2018-05-22] MEDS: ASPIRIN 81 MG PO SCH (08:27)
[2018-05-22] MEDS: FAMOTIDINE 20 MG TAB PO SCH (08:27)
[2018-05-22] MEDS: SPIRONOLACTONE 25 MG TAB PO SCH (08:27)
[2018-05-22] MEDS: TICAGRELOR 90 MG TAB PO SCH (08:28)
[2018-05-22] MEDS: LISINOPRIL 10 MG TAB PO SCH (08:28)
[2018-05-22 10:33] VITALS: BP 155/79; PULSE 71; TEMP 98.3
--- NOTE | 2018-05-22 11:20 | P.DS ---
Providers Date of admission: 05/18/18 21:35 Attending physician: Roberto Carlos Bran Consults: 05/18/18 23:04 Consult Physician Routine Consulting Provider: [facility] Consult Reason/Comments: Post Interventional patient Do you want consulting provider notified?: Already Contacted Primary care physician: Beny Hernandez [facility] Course: This is a 67-year-old male patient of Dr. Hernandez and Dr. Cortes with a past medical history of hypertension, hyperlipidemia, gastroesophageal reflux disease. Patient states that he had a stress test a few years ago because he was having PVCs and this was normal. He has been following with Dr. Cortes as he has significant family history of coronary artery disease. He recently changed his statin but no other medication changes. He was sitting watching TV at 7:45 PM and developed chest pain that was in the midsternal area. He said was a sudden onset. He stood up and walked in the house but it did not go away so he changed his falls and drove himself into [facility] emergency center for evaluation. He was assisted at the door and was put in a wheelchair and subsequent after that passed out. He was found to be in ventricular fibrillation and full arrest and CPR was initiated. Patient was cardioverted twice and then he woke. He went to the [facility] under the care of Dr. LIVE Durán for emergent heart catheterization found to have LAD totally occluded in the midportion, diagonal branch 50-60% lesion, circumflex 30-40% with 95% stenosis in the midportion. PCI of the LAD with a drug-eluting stent was done and PCI of the mid circumflex with a drug-eluting stent. Patient was then admitted into the intensive care unit. This morning, patient denies having any chest pain, shortness of breath, lightheadedness or dizziness. He does have some right sided chest soreness which he believes is sore from compressions or shock. Echocardiogram reveals moderate concentric left ventricular hypertrophy, EF 35- 40%, LV hypokinetic, moderate aortic regurgitation, mild mitral regurgitation, mild tricuspid regurgitation 05/20: Patient remains in intensive care unit. He has been cleared by cardiology for transfer to the cardiac stepdown unit which will happen today. He only has chest pain to the right ribs secondary to compressions or cardioversion. No other types of chest pain. He denies any shortness of breath. He has been ambulating multiple times around the unit without lightheadedness or dizziness. Vital signs have been stable. Patient is been afebrile. Heart rate running in the 50s and 60s. Pulse ox 97% on room air. Anticipate possible discharge tomorrow or Wednesday. Patient's is at the bedside and family in the waiting room. All questions have been answered and patient verbalizes understanding. 05/21: Patient is sitting up in a chair in no apparent distress he denies any chest pain, shortness of breath, he has no abdominal pain, he had an episode of diarrhea earlier today has no blood in the stool or black tarry stool, his anticipating Discharge tomorrow morning. Discharge diagnoses: 1. Acute anterior wall myocardial infarction complicated by ventricular fibrillation and cardiac arrest requiring CPR. 2. Hyperlipidemia. 3. Hypertension. 4. Gastroesophageal reflux disease. 5. Right-sided rib pain . Patient Condition at Discharge: Good Plan - Discharge Summary Discharge Rx Participant: No New Discharge Prescriptions: No Action Simvastatin [Zocor] 40 mg PO HS NIFEdipine XL [Procardia XL] 30 mg PO DAILY Famotidine [Pepcid AC] 10 mg PO DAILY Aspirin [Chugach Aspirin EC] 81 mg PO DAILY Discharge Medication List Aspirin [Chugach Aspirin EC] 81 mg PO DAILY 05/18/18 [History] Famotidine [Pepcid AC] 10 mg PO DAILY 05/18/18 [History] NIFEdipine XL [Procardia XL] 30 mg PO DAILY 05/18/18 [History] Simvastatin [Zocor] 40 mg PO HS 05/18/18 [History] Follow up Appointment(s)/Referral(s): Beny Hernandez MD [Primary Care Provider] - 1-2 days
--- NOTE | 2018-05-22 11:44 | P.PN ---
Subjective Progress Note Date: 05/22/18 Principal diagnosis: STEMI This is a pleasant 67-year-old gentleman with history of hyperlipidemia. Presented to the emergency department with acute anterior myocardial infarction complicated by ventricular fibrillation and ventricular tachycardia. Cardiac catheterization with stenting of LAD and left circumflex. He is complaining of right sided rib discomfort related to CPR. Overall he is doing fairly well. He is tired. He is of difficulty breathing, dizziness or palpitations. He's had no dark nausea or vomiting. He's been up ambulating. He is currently on aspirin 81 mg by mouth daily, atorvastatin 80 mg by mouth daily at bedtime, Zestril 10 mg by mouth daily, metoprolol tartrate 25 mg by mouth twice a day, Aldactone 25 mg daily and Brilinta 90mg BID. Echocardiogram with Doppler did show an ejection fraction of 35-40% with segmental wall motion abnormality consistent with prior [place]. On examination, patient is ambulating about the room. He has had no further complaints of chest discomfort. No dizziness, lightheadedness or palpitations. He's had no difficulty breathing. He is anticipating discharge today. Objective - Vital Signs Vital signs: Vital Signs Temp 98.3 F 05/22/18 08:30 Pulse 71 05/22/18 08:30 Resp 20 05/22/18 08:30 BP 155/79 05/22/18 08:30 Pulse Ox 96 05/22/18 08:30 Intake & Output 05/21/18 05/22/18 05/22/18 18:59 06:59 18:59 Intake Total 480 240 Output Total 1 Balance 480 -1 240 Weight 76.5 kg Intake: Oral 480 240 Output: Urine 1 Other: Voiding Method Urinal # Voids 2 1 1 - Exam PHYSICAL EXAMINATION: HEENT: Head is atraumatic, normocephalic. Pupils equal, round. Neck is supple. There is no elevated jugular venous pressure. HEART EXAMINATION: Heart sounds regular, S1 and S2 normal. No murmur or gallop heard. CHEST EXAMINATION: Lungs are clear to auscultation and precussion. No chest wall tenderness is noted on palpation or with deep breathing. ABDOMEN: Soft, nontender. Bowel sounds are heard. No organomegaly noted. EXTREMITIES: 2+ peripheral pulses with no evidence of peripheral edema and no calf tenderness noted. Right groin puncture site with ecchymosis, soft without hematoma.. NEUROLOGIC patient is awake, alert and oriented x3. . - Labs CBC & Chem 7: 05/19/18 03:40 05/21/18 06:24 Assessment and Plan Assessment: #1 status post anterior STEMI with stenting of the LAD #2 ventricular tachycardia and fibrillation presentation, status post cardiopulmonary resuscitation #3 ischemic cardiomyopathy #4 hypertension #5 hyperlipidemia, according to patient most recent LDL 151 done 2 weeks ago. Plan: From cardiology's perspective, medications reviewed and we will continue the same. From our standpoint, patient may be discharged home today. He'll follow- up with Dr. Cortes in the office. [facility] note has been reviewed, I agree with a documented findings and plan of care. Patient was seen and examined.
== END 2018-05-22 12:13 | disposition home or self-care (01) | DRG 246 ==
LOC: EC 20:39 → 2SICU 21:35 → 3SCARD 05-20 17:50
PROVIDERS: ADMIT Internal Medicine Geriatric Medicine; ATTEND Internal Medicine Geriatric Medicine
PROC: 4A023N7 Measurement of Cardiac Sampling and Pressure, Left Heart, Percutaneous Approach (ICD-10-PCS; 2018-05-18)
PROC: B2111ZZ Fluoroscopy of Multiple Coronary Arteries using Low Osmolar Contrast (ICD-10-PCS; 2018-05-18)
PROC: 5A2204Z Restoration of Cardiac Rhythm, Single (ICD-10-PCS; principal; 2018-05-18 21:34)
PROC: 027135Z Dilation of Coronary Artery, Two Arteries with Two Drug-eluting Intraluminal Devices, Percutaneous Approach (ICD-10-PCS; 2018-05-18 21:34)
PROC: 5A12012 Performance of Cardiac Output, Single, Manual (ICD-10-PCS; 2018-05-18 21:34)
DX: I21.09 ST elevation (STEMI) myocardial infarction involving other coronary artery of anterior wall (principal); I49.01 Ventricular fibrillation; I46.2 Cardiac arrest due to underlying cardiac condition; I47.2 Ventricular tachycardia; I10 Essential (primary) hypertension; I08.3 Combined rheumatic disorders of mitral, aortic and tricuspid valves; E78.00 Pure hypercholesterolemia, unspecified; I25.5 Ischemic cardiomyopathy; E78.5 Hyperlipidemia, unspecified; I25.10 Atherosclerotic heart disease of native coronary artery without angina pectoris; K21.9 Gastro-esophageal reflux disease without esophagitis; R07.81 Pleurodynia; Z82.49 Family history of ischemic heart disease and other diseases of the circulatory system; Z79.82 Long term (current) use of aspirin; Z79.899 Other long term (current) drug therapy; Z80.6 Family history of leukemia; Z83.3 Family history of diabetes mellitus
CPT/HCPCS: 36415; 71045; 80048; 80053; 82550; 82553; 83735; 84484; 85025; 85027; 85610; 85730; 92950; 93005; 93306; 93458; 96365; 96374; 96375; 99291; C1874

== ENCOUNTER → 2018-05-31 | Outpatient (CLI) | payer MEDICARE ==
--- NOTE | 2018-05-31 23:04 | CONS ---
CONSULTATION REASON FOR CONSULTATION: Sleep apnea. 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 This patient was recently involved in a massive acute ST-segment elevation myocardial infarction. The patient had an emergent cardiac catheterization and stenting of the LAD and circumflex vessels. He presented to the Emergency Department with chest pain and subsequently had brief cardiopulmonary arrest. He was resuscitated, cathed, treated in the Intensive Care Unit and then was discharged home. He was briefly in atrial fibrillation, currently is back to normal sinus rhythm. His echocardiogram in showing mild impairment of LV function with an ejection fraction of 35% to 40%. Nevertheless he does not have any typical features of heart failure at this point in time. His cardiac rhythm is back to sinus. From the sleep apnea standpoint, he has loud snoring and this has been a chronic problem. No major tiredness or sleepiness during the day. He has been a very active person in his life. He does not fall asleep during day-to-day activities. He denies waking up tired during the day. No trouble paying attention, No problems with fatigue and sleepiness during the day. No problems with memory and concentration. He goes to bed between 10 and 10:30 p.m., wakes up at 5:00 a.m. He sleeps on an average of 6-1/2 hours, takes a few minutes to fall asleep. Upon arousal he is feeling refreshed. No recent weight gain. No sleep paralysis. No hallucinations. No cataplexy. No unusual parasomnia at nighttime. His Shawano score is at 8. PAST MEDICAL HISTORY: Coronary artery disease with a recent acute ST-segment elevation myocardial infarction. The patient had coronary stenting. PAST SURGICAL HISTORY: Includes cardiac catheterization and insertion of 2 coronary stents including a stent in LAD, right knee arthroscopic repair of the medial meniscus, and bilateral hernia repair. DRUG ALLERGIES: Not known. OUTPATIENT MEDICATION LIST: 1. Aspirin 81 mg p.o. daily. 2. Lipitor 80 mg p.o. daily. 3. Pepcid 10 mg p.o. daily. 4. Lisinopril 10 mg p.o. daily. 5. Lopressor 25 mg twice a day. 6. Aldactone 25 mg p.o. daily. 7. Brilinta 90 mg twice a day. SOCIAL HISTORY: Nonsmoker, no history of alcohol, no history of IV drugs. 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 FAMILY HISTORY: Negative for sleep apnea. REVIEW OF SYSTEMS: No symptoms of bruxism. No grinding of the teeth. No dry mouth. No anxiety or panic attacks. No palpitation. No restlessness in the lower extremities. No sleepwalking or sleeptalking. No nocturnal episodes of choking or gasping for air. No nocturia. He has loud snoring. PHYSICAL EXAMINATION: BP is 133/72, pulse 80, respirations 16, temperature 97.8, saturation 98% on room air. Height is 5 feet 7 inches, weight is 164, BMI is 25.3. GENERAL APPEARANCE: Appears calm and comfortable. HEAD: Atraumatic, normocephalic. NECK: Supple. There is no JVD. No goiter or neck masses. LUNGS: Clear to auscultation. HEART: Sounds regular rhythm. Normal S1, S2. No S3. No murmurs. ABDOMEN: Soft, nontender. No organomegaly. EXTREMITIES: No edema. No cyanosis or clubbing. NEUROLOGIC: The patient is alert, oriented x3. No focal neurological deficits. PSYCHIATRIC: Negative for anxiety or depression. IMPRESSION: 1. Loud snoring. Clinically the patient does not have the typical features of obstructive sleep apnea. This has been a concern, however, especially with his recent cardiovascular complications. No major hypersomnia or sleepiness. Shawano score is only at 8. No witnessed apneas. No daytime hypersomnia or sleepiness. 2. Coronary artery disease with recent ST-segment elevation myocardial infarction. 3. Mild congestive heart failure with ejection fraction of 35% to 40%. His CHF is well compensated for now. PLAN: Check a home sleep study to screen the patient for obstructive sleep apnea. Overall suspicion for ELINOR is low. He has good sleep hygiene measures. Continue cardiac treatment and will report back to this patient should there be any abnormalities in his home sleep study. MMODL / IJN: [id number] /
== END ==
LOC: SLEEP 15:11
PROVIDERS: ATTEND Internal Medicine Critical Care Medicine
DX: R06.83 Snoring (principal); I25.10 Atherosclerotic heart disease of native coronary artery without angina pectoris; I50.9 Heart failure, unspecified; Z79.899 Other long term (current) drug therapy; Z79.82 Long term (current) use of aspirin
CPT/HCPCS: 99211

== ENCOUNTER → 2018-10-04 | Outpatient (CLI) | payer MEDICARE, OTHER ==
--- NOTE | 2018-10-04 21:32 | PN ---
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 The patient was diagnosed having ELINOR 3 months ago. The patient was found to have an apnea-hypopnea index of 15.6, worse in the supine body position. The patient demonstrated mild nocturnal oxygen desaturation. He is known to have congestive heart congestive heart failure with an ejection fraction of 35% to 40%. He is also known to have coronary artery disease with previous SD. The patient was offered an a Pap and currently his APAP is at a minimum pressure of 5 maximum pressure of 20. On today's evaluation, he reports marked improvement in sleep quality. Sleep quality is improved. He denies complete resolution of his nocturia. He used to get up at least 5-6 times in the middle of night to urinate and currently is getting up once and he is very happy with that. As such, his sleep is less fragmented. He is much more awake and alert during the day. He does not take any naps. He feels like he has got more energy. Note that he has been to [facility], 200 feet above sea level and even with that denies any major difficulty. He used his machine during his trip to [place] and he did not have any issues with congestive heart failure. Note that he was also taking Diamox for high altitude sickness. While in [place], [place], the patient feeds in oxygen at 2 L into his CPAP machine and he has appropriate adapter for that. Otherwise he is doing well. No signs of any congestion heart failure, no angina. No palpitations. No cardiac arrhythmias. No other complaints otherwise. REVIEW OF SYSTEMS: 14-point review of system was done. Positive findings are mentioned in history of present illness. No recent weight gain or weight loss. No snoring while on the CPAP unit. No sinus infection or postnasal drainage. He is using a nose pillow for now. No difficulty in his throat. No chest pain. No shortness of breath. No cough or sputum production. No palpitation. No nausea, vomiting, or heartburn. No dysuria, frequency, urgency. Nocturia is improved. No abdominal pain. No flatus. No swelling lower extremities. No altered mentation. No headaches. No pallor. No seizure. No syncope. PHYSICAL EXAMINATION: BP is 133/63, pulse 60, respirations 16, temperature 98.3, weight is 162. Saturation 98% on room air. GENERAL APPEARANCE: Calm comfortable. Head is atraumatic, normocephalic. NECK: Supple. No JVD. No goiter or neck masses. Mallampati class 3-4. LUNGS: Clear to auscultation. HEART: Sounds regular rate and rhythm. Normal S1, S2. No S3. No murmurs. ABDOMEN: Soft, nontender. No organomegaly. EXTREMITIES: No edema. No cyanosis or clubbing. NEUROLOGIC: Alert and oriented x3. No focal neurological deficits. Psychiatrically negative for anxiety or depression. SKIN: Negative for any wounds or ulceration. IMPRESSION: 1. Obstructive sleep apnea mild in severity. AHI of 15. Worse in the supine body position. Currently undergoing successful APAP treatment. 2. Hypersomnia, recovered. 3. High altitude sickness improved. 4. Congestive heart failure and ejection fraction of 35 to 40%, currently inactive and stable. 5. Coronary artery disease with previous ST-segment elevation myocardial infarction. 6. Hypersomnia improved. PLAN: 1. Continue APAP therapy at the same level of pressure. 2. Compliancy data was checked and the patient is very compliant, if treatment is successful, no need for any changes. 3. Continue AirFit P10 nose pillows. 4. The patient will see me back in a year's time earlier if needed. No active issues for now. MMODL / IJN: [id number] /
== END | disposition home or self-care (01) ==
LOC: SLEEP 16:07
PROVIDERS: ATTEND Internal Medicine Critical Care Medicine
DX: G47.33 Obstructive sleep apnea (adult) (pediatric) (principal); I50.9 Heart failure, unspecified; I25.10 Atherosclerotic heart disease of native coronary artery without angina pectoris; I25.2 Old myocardial infarction; T70.20XA Unspecified effects of high altitude, initial encounter; Z98.890 Other specified postprocedural states; Z99.89 Dependence on other enabling machines and devices

== ENCOUNTER 2019-04-30 07:20 | Observation (INO) | payer MEDICARE, OTHER ==
[2019-04-30] MEDS ORDERED: ASPIRIN 81 MG PO STA (07:55)
[2019-04-30] MEDS ORDERED: NITROGLYCERIN OINT 1 INCH/GM PACKET TOPICAL STA (07:55)
--- NOTE | 2019-04-30 08:05 | ED ---
General Adult HPI - General Chief complaint: Chest Pain Stated complaint: Chest pressure Time Seen by Provider: 04/30/19 07:25 Source: patient, family, RN notes reviewed Mode of arrival: wheelchair Limitations: no limitations - History of Present Illness Initial comments: This is a 68-year-old male who presents emergency Department with a past medical history significant for NM with stent placement, cardiac arrest, hypertension high cholesterol. Patient states he had an episode of chest discomfort yesterday and also was feeling some palpitations. Patient woke up this morning at 5 AM and had some palpitations and noticed some chest discomfort in the center of his chest just left of the sternum followed by a couple episodes of diaphoresis. Patient states the symptoms seem to resolve when he gets up and walks around however soon as he stopped she can feel the discomfort again. Patient denies any difficulty breathing patient denies any nausea patient denies any abdominal pain. Patient denied lightheadedness or dizziness. Patient denies any calf pain or swelling to the legs. Patient did have a plane flight last evening from [place]. Patient denies any headache patient denies any numbness or weakness. - Related Data Home Medications Medication Instructions Recorded Confirmed Famotidine [Pepcid AC] 10 mg PO DAILY 05/18/18 04/30/19 L.acidoph,Paracasei, B.lactis 1 cap PO DAILY 04/30/19 04/30/19 [Probiotic] Lisinopril [Zestril] 20 mg PO DAILY 04/30/19 04/30/19 Spironolactone [Aldactone] 25 mg PO DIRECTED 04/30/19 04/30/19 acetaZOLAMIDE [Diamox] 250 mg PO DAILY 04/30/19 04/30/19 Previous Rx's Medication Instructions Recorded Aspirin 81 mg PO DAILY chew 05/22/18 Atorvastatin [Lipitor] 80 mg PO HS #30 tab 05/22/18 Metoprolol Tartrate [Lopressor] 25 mg PO BID #60 tab 05/22/18 Nitroglycerin Sl Tabs [Nitrostat] 0.4 mg SUBLINGUAL Q5M PRN #30 tab 05/22/18 Ticagrelor [Brilinta] 90 mg PO BID tab 05/22/18 Allergies Allergy/AdvReac Type Severity Reaction Status Date / Time No Known Allergies Allergy Verified 04/30/19 08:19 Review of Systems ROS Statement: Those systems with pertinent positive or pertinent negative responses have been documented in the HPI. ROS Other: All systems not noted in ROS Statement are negative. Past Medical History Past Medical History: Coronary Artery Disease (CAD), GERD/Reflux, Hyperlipidemia, Hypertension, Myocardial Infarction ([place]), Sleep Apnea/CPAP/BIPAP Last Myocardial Infarction Date:: 05/18/2018 History of Any Multi-Drug Resistant Organisms: None Reported Past Surgical History: Hernia Repair, Orthopedic Surgery Additional Past Surgical History / Comment(s): Rt knee arthroscopy > 15 years, stent to the LAD and left circumflex 05/2018 Past Anesthesia/Blood Transfusion Reactions: No Reported Reaction Past Psychological History: No Psychological Hx Reported Smoking Status: Never smoker Past Alcohol Use History: Occasional Past Drug Use History: None Reported - Past Family History Father Family Medical History: Cancer, Myocardial Infarction ([place]) Additional Family Medical History / Comment(s): Father and Fraternal grandfather both at age 62 of [place]. Mother Additional Family Medical History / Comment(s): Mother at age 76 from leukemia with history of diabetes. Sister(s) Additional Family Medical History / Comment(s): Patient has one sister with prediabetes. Patient does not have any brothers. Patient has 1 son and 1 daughter with no major medical problems. General Exam - General Exam Comments Initial Comments: GENERAL: Patient is well-developed and well-nourished. Patient is nontoxic and well- hydrated and is in mild distress. ENT: Neck is soft and supple. No significant lymphadenopathy is noted. Oropharynx is clear. Moist mucous membranes. Neck has full range of motion without eliciting any pain. EYES: The sclera were anicteric and conjunctiva were pink and moist. Extraocular movements were intact and pupils were equal round and reactive to light. Eyelids were unremarkable. PULMONARY: Unlabored respirations. Good breath sounds bilaterally. No audible rales rhonchi or wheezing was noted. CARDIOVASCULAR: There is a regular rate and rhythm without any murmurs gallops or rubs. Patient has an occasional extrasystole ABDOMEN: Soft and nontender with normal bowel sounds. No palpable organomegaly was noted. There is no palpable pulsatile mass. SKIN: Skin is clear with no lesions or rashes and otherwise unremarkable. NEUROLOGIC: Patient is alert and oriented x3. Cranial nerves II through XII are grossly intact. Motor and sensory are also intact. Normal speech, volume and content. Symmetrical smile. MUSCULOSKELETAL: Normal extremities with adequate strength and full range of motion. No lower extremity swelling or edema. No calf tenderness. LYMPHATICS: No significant lymphadenopathy is noted PSYCHIATRIC: Normal psychiatric evaluation. Limitations: no limitations Course Vital Signs 04/30/19 04/30/19 07:24 07:38 Temperature 97.7 F Pulse Rate 58 L Pulse Rate [ 59 L Chemical Inspector ] Respiratory 18 Rate Blood Pressure 158/86 O2 Sat by Pulse 100 Oximetry Medical Decision Making - Medical Decision Making EKG shows sinus bradycardia at a rate of [address] interval is 164 QRS is 1 week QT interval 424 QTC is 416. Patient's EKG shows Q waves in V1 and V2 V3 V4 but there is no ST segment elevation. Chest x-ray shows no acute abnormality. Patient computed tomography scan because he just got off a plane from [place] and had an elevated d-dimer. CAT scan showed no PE. I started the patient heparin for the unstable angina. I called Dr. Wilkins he agreed to admit the patient he saw the patient in the emergency department and admitted the patient. I continue aspirin heparin Nitropaste on the floor. I consulted cardiology. - Lab Data Result diagrams: 04/30/19 07:46 04/30/19 07:46 Lab Results 04/30/19 04/30/19 04/30/19 Range/Units 07:46 07:46 07:46 WBC 8.1 (3.8-10.6) k/uL RBC 4.47 (4.30-5.90) m/uL Hgb 13.9 (13.0-17.5) gm/dL Hct 43.8 (39.0-53.0) % MCV 97.9 (80.0-100.0) fL MCH 31.0 (25.0-35.0) pg MCHC 31.7 (31.0-37.0) g/dL RDW 13.0 (11.5-15.5) % Plt Count 174 (150-450) k/uL Neutrophils % 67 % Lymphocytes % 13 % Monocytes % 8 % Eosinophils % 10 % Basophils % 0 % Neutrophils # 5.4 (1.3-7.7) k/uL Lymphocytes # 1.1 (1.0-4.8) k/uL Monocytes # 0.6 (0-1.0) k/uL Eosinophils # 0.8 H (0-0.7) k/uL Basophils # 0.0 (0-0.2) k/uL PT 10.2 (9.0-12.0) sec INR 0.9 (<1.2) APTT 25.3 (22.0-30.0) sec D-Dimer 1.06 H (<0.60) mg/L FEU Sodium 142 (137-145) mmol/L Potassium 4.2 (3.5-5.1) mmol/L Chloride 111 H (98-107) mmol/L Carbon Dioxide 21 L (22-30) mmol/L Anion Gap 10 mmol/L BUN 21 H (9-20) mg/dL Creatinine 1.12 (0.66-1.25) mg/dL Est GFR (CKD-EPI)AfAm 78 (>60 ml/min/1.73 sqM) Est GFR (CKD-EPI)NonAf 68 (>60 ml/min/1.73 sqM) Glucose 126 H (74-99) mg/dL Calcium 8.9 (8.4-10.2) mg/dL Magnesium 2.0 (1.6-2.3) mg/dL Total Bilirubin 0.7 (0.2-1.3) mg/dL AST 48 (17-59) U/L ALT 53 (21-72) U/L Alkaline Phosphatase 57 (38-126) U/L Troponin I (0.000-0.034) ng/mL Total Protein 6.6 (6.3-8.2) g/dL Albumin 3.8 (3.5-5.0) g/dL 04/30/19 Range/Units 07:46 WBC (3.8-10.6) k/uL RBC (4.30-5.90) m/uL Hgb (13.0-17.5) gm/dL Hct (39.0-53.0) % MCV (80.0-100.0) fL MCH (25.0-35.0) pg MCHC (31.0-37.0) g/dL RDW (11.5-15.5) % Plt Count (150-450) k/uL Neutrophils % % Lymphocytes % % Monocytes % % Eosinophils % % Basophils % % Neutrophils # (1.3-7.7) k/uL Lymphocytes # (1.0-4.8) k/uL Monocytes # (0-1.0) k/uL Eosinophils # (0-0.7) k/uL Basophils # (0-0.2) k/uL PT (9.0-12.0) sec INR (<1.2) APTT (22.0-30.0) sec D-Dimer (<0.60) mg/L FEU Sodium (137-145) mmol/L Potassium (3.5-5.1) mmol/L Chloride (98-107) mmol/L Carbon Dioxide (22-30) mmol/L Anion Gap mmol/L BUN (9-20) mg/dL Creatinine (0.66-1.25) mg/dL Est GFR (CKD-EPI)AfAm (>60 ml/min/1.73 sqM) Est GFR (CKD-EPI)NonAf (>60 ml/min/1.73 sqM) Glucose (74-99) mg/dL Calcium (8.4-10.2) mg/dL Magnesium (1.6-2.3) mg/dL Total Bilirubin (0.2-1.3) mg/dL AST (17-59) U/L ALT (21-72) U/L Alkaline Phosphatase (38-126) U/L Troponin I <0.012 (0.000-0.034) ng/mL Total Protein (6.3-8.2) g/dL Albumin (3.5-5.0) g/dL Critical Care Time Critical Care Time: Yes Total Critical Care Time: 35 Disposition Clinical Impression: Unstable angina pectoris Disposition: ADMITTED IP TO THIS HOSP Referrals: Roberto Carlos Bran MD [Primary Care Provider] - 1-2 days Time of Disposition: 10:42
[2019-04-30] MEDS ORDERED: ACETAMINOPHEN TAB 500 MG TAB PO STA (08:06)
[2019-04-30 08:26] LABS: Basophils % (A) 0 %; Eosinophils # (A) 0.8 k/uL (0-0.7); Eosinophils % (A) 10 %; HCT 43.8 % (39.0-53.0); HGB 13.9 gm/dL (13.0-17.5); Lymphocytes # (A) 1.1 k/uL (1.0-4.8); Lymphocytes % (A) 13 %; MCHC 31.7 g/dL (31.0-37.0); MCV 97.9 fL (80.0-100.0); Mean Platelet Volume 8.7; Monocytes # (A) 0.6 k/uL (0-1.0); Monocytes % (A) 8 %; Neutrophils # (A) 5.4 k/uL (1.3-7.7); Neutrophils % (A) 67 %; Platelet Count 174 k/uL (150-450); RBC 4.47 m/uL (4.30-5.90); WBC 8.1 k/uL (3.8-10.6)
--- NOTE | 2019-04-30 08:28 | XR ---
EXAMINATION TYPE: XR chest 2V DATE OF EXAM: 04/30/2019 HISTORY: Chest Pain. REFERENCE: Previous study dated 05/18/2018. FINDINGS: Lung volumes are prominent. The heart is minimally enlarged. The lungs are clear. IMPRESSION: 1. COPD. 2. MILD CARDIOMEGALY.
[2019-04-30 08:34] LABS: Albumin 3.8 g/dL (3.5-5.0); Calcium 8.9 mg/dL (8.4-10.2); Potassium 4.2 mmol/L (3.5-5.1); Total Bilirubin 0.7 mg/dL (0.2-1.3); Total Protein 6.6 g/dL (6.3-8.2)
[2019-04-30 08:50] LABS: INR 0.9 (<1.2); Partial Thromboplastin Time 25.3 sec (22.0-30.0); Prothrombin Time 10.2 sec (9.0-12.0)
[2019-04-30 09:07] LABS: D-Dimer 1.06 mg/L FEU (<0.60)
--- NOTE | 2019-04-30 10:24 | CT ---
EXAMINATION TYPE: CT chest angio for PE DATE OF EXAM: 04/30/2019 COMPARISON: None. HISTORY: Chest pressure/pain CT DLP: 452.7 mGycm Automated exposure control for dose reduction was used. CONTRAST: CT Chest for pulmonary embolism performed with with IV Contrast, patient injected with 100 mL of Isov ue 370. FINDINGS: There is dependent atelectasis in the dependent portions of the lungs. There is no significant axillary, mediastinal or hilar adenopathy. There is no evidence of pulmonary embolus. The aorta is normal in caliber without evidence of dissect ion. There is no pleural or pericardial fluid. The heart is minimally enlarged. There is a small hiatal hernia. There is a simple appearing 3.2 cm cyst involving the upper pole of the right kidney. Visualized port ions of the upper abdomen are otherwise unremarkable. There is hypertrophic spondylosis within the spine. IMPRESSION: 1. THIS EXAMINATION IS NEGATIVE FOR PULMONARY EMBOLUS. 2. MINIMAL CARDIOMEGALY. 3. SIMPLE APPEARING RIGHT RENAL CYST. 4. DEGENERATIVE CHANGES WITHIN THE SPINE.
[2019-04-30] MEDS ORDERED: HEPARIN SODIUM,PORCINE 5,000 UNIT/ML 1 ML VIAL IV ONE (10:25)
[2019-04-30] MEDS ORDERED: HEPARIN SOD,PORK IN 0.45% NACL 25,000 UNIT in 0.45% NACL 1 250ML.BAG IV SCH (10:30)
[2019-04-30] MEDS ORDERED: NITROGLYCERIN SL TABS 0.4 MG TAB SUBLINGUAL PRN (10:37)
--- NOTE | 2019-04-30 11:28 | P.HPIM ---
History of Present Illness H&P Date: 04/30/19 Chief Complaint: Chest pain. This is a 68-year-old male with a previous medical history significant for CAD post PCI of the proximal LAD and the distal left circumflex complex about a year ago in May 2018 after he developed a significant ST elevation [place] followed by a cardiac arrest with resuscitation and significant recovery after that with ischemic cardiomyopathy has been under the care of Dr. 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, hyperlipidemia, patient was in [place] since and he was switched his spinal lactone to Diamox due to all to acute sickness and he woke up 3:00 in the morning in [place] yesterday with a strange feeling in the chest suggestive of recurrent PVCs with some chest discomfort patient ended up getting travel back to [place] via airplane at 1045 last night he woke up at 5:00 in the morning with similar symptoms suggestive of PVCs with some minimal soreness in his chest he ended up coming to the ER at [facility] EKG did not show any evidence of acute ST-T wave changes, it did show prior [place] in the past, d-dimer is elevated underwent CT angiography of the chest that was negative for poor embolism, because of the presentation was admitted to the hospital for evaluation by cardiology patient was seen by Dr. Cortes not to undergo had an echocardiogram his ejection fraction stated is about 49%, and patient stated that this is up from last year, patient also was seen at the [facility] and he had a stress echo back in September of this year that was negative for stress-induced ischemia. Review of Systems Constitutional: Denies anorexia, Denies chronic pain, Denies malaise, Denies weakness, Denies weight gain Eyes: denies blurred vision, denies bulging eye, denies decreased vision, denies diplopia Ears: deny: decreased hearing Ears, nose, mouth and throat: Denies dysphagia, Denies neck lump, Denies swellin g in throat, Denies sore throat Cardiovascular: Reports chest pain, Denies decreased exercise tolerance, Denies dyspnea on exertion, Denies lightheadedness, Denies rapid heart beat, Denies shortness of breath, Denies syncope Respiratory: Denies congestion, Denies cough, Denies cough with sputum, Denies home oxygen, Denies sleep apnea, Denies snoring, Denies wheezing Gastrointestinal: Denies abdominal pain, Denies belching, Denies BRBPR, Denies heartburn, Denies loss of appetite, Denies melena, Denies nausea, Denies vomi ting Genitourinary: Reports nocturia, Denies dysuria Musculoskeletal: Denies myalgias Musculoskeletal: absent: ankle pain, ankle stiffness, ankle swelling, elbow pain, elbow stiffness, elbow swelling, foot pain, foot stiffness, foot swelling, hand pain, hand stiffness, hand swelling, hip pain, hip stiffness, hip swelling, knee pain, knee stiffness, knee swelling, shoulder pain, shoulder stiffness, shoulder swelling, wrist pain, wrist stiffness, wrist swelling Integumentary: Denies pruritus, Denies rash Neurological: Denies numbness, Denies weakness Psychiatric: Denies anxiety, Denies depression Endocrine: Denies fatigue, Denies weight change Past Medical History Past Medical History: Coronary Artery Disease (CAD), GERD/Reflux, Hyperlipidemia, Hypertension, Myocardial Infarction ([place]), Prostate Disorder, Sleep Apnea/CPAP/BIPAP Last Myocardial Infarction Date:: 05/18/2018 History of Any Multi-Drug Resistant Organisms: None Reported Past Surgical History: Hernia Repair, Orthopedic Surgery Additional Past Surgical History / Comment(s): Rt knee arthroscopy > 15 years, stent to the LAD and left circumflex 05/2018 Past Anesthesia/Blood Transfusion Reactions: No Reported Reaction Past Psychological History: No Psychological Hx Reported Smoking Status: Never smoker Past Alcohol Use History: Occasional Past Drug Use History: None Reported - Past Family History Father Family Medical History: Cancer, Myocardial Infarction ([place]) Additional Family Medical History / Comment(s): Father and Fraternal grandfather both at age 62 of [place]. Mother Additional Family Medical History / Comment(s): Mother at age 76 from leukemia with history of diabetes. Sister(s) Additional Family Medical History / Comment(s): Patient has one sister with prediabetes. Patient does not have any brothers. Patient has 1 son and 1 daughter with no major medical problems. Medications and Allergies Home Medications Medication Instructions Recorded Confirmed Type Famotidine [Pepcid AC] 10 mg PO DAILY 05/18/18 04/30/19 History Aspirin 81 mg PO DAILY chew 05/22/18 04/30/19 Rx Atorvastatin [Lipitor] 80 mg PO HS #30 tab 05/22/18 04/30/19 Rx Metoprolol Tartrate [Lopressor] 25 mg PO BID #60 tab 05/22/18 04/30/19 Rx Nitroglycerin Sl Tabs [Nitrostat] 0.4 mg SUBLINGUAL Q5M PRN #30 tab 05/22/18 04/30/19 Rx Ticagrelor [Brilinta] 90 mg PO BID tab 05/22/18 04/30/19 Rx L.acidoph,Paracasei, B.lactis 1 cap PO DAILY 04/30/19 04/30/19 History [Probiotic] Lisinopril [Zestril] 20 mg PO DAILY 04/30/19 04/30/19 History Spironolactone [Aldactone] 25 mg PO DIRECTED 04/30/19 04/30/19 History acetaZOLAMIDE [Diamox] 250 mg PO DAILY 04/30/19 04/30/19 History Allergies Allergy/AdvReac Type Severity Reaction Status Date / Time No Known Allergies Allergy Verified 04/30/19 08:19 Physical Exam Vitals: Vital Signs Temp Pulse Pulse Resp BP Pulse Ox 04/30/19 11:05 97.8 F 55 L 18 112/70 98 04/30/19 07:38 59 L 04/30/19 07:24 97.7 F 58 L 18 158/86 100 Intake and Output 04/29/19 04/30/19 04/30/19 22:59 06:59 14:59 Other: Weight 73.936 kg - Constitutional General appearance: no acute distress - EENT Eyes: no abnormal pupil, EOMI, no PERRLA, no dentition normal, no ptosis, no scleral icterus, normal appearance Ears: bilateral: normal - Neck Neck: no lymphadenopathy, normal ROM, no rigidity, no stridor, no thyromegaly Carotids: bilateral: upstroke normal Thyroid: bilateral: normal size - Respiratory Respiratory: negative: diminished, dullness, rales, rhonchi, wheezing, prolonged expiration - Cardiovascular Rhythm: regular Heart sounds: normal: S1, S2 Abnormal Heart Sounds: systolic murmur, no S3 Gallop, no S4 Gallop - Gastrointestinal General gastrointestinal: normal bowel sounds, soft, no splenomegaly, no tenderness, no umbilical hernia - Integumentary Integumentary: normal, normal turgor - Musculoskeletal Musculoskeletal: strength equal bilaterally - Psychiatric Psychiatric: A&O x's 3, appropriate affect, intact judgment & insight Results CBC & Chem 7: 04/30/19 07:46 04/30/19 07:46 Labs: Abnormal Lab Results - Last 24 Hours (Table) 04/30/19 04/30/19 04/30/19 Range/Units 07:46 07:46 07:46 Eosinophils # 0.8 H (0-0.7) k/uL D-Dimer 1.06 H (<0.60) mg/L FEU Chloride 111 H (98-107) mmol/L Carbon Dioxide 21 L (22-30) mmol/L BUN 21 H (9-20) mg/dL Glucose 126 H (74-99) mg/dL Assessment and Plan Assessment: Assessment and plan: 1. Chest discomfort with recurrent PVCs in a patient with a prior history of CAD with ischemic cardiomyopathy post eventful ST elevation [place] a year ago followed by cardiac arrest and 2 stents in the proximal LAD and the distal LCx. Patient will be admitted to the hospital, cardiac enzymes 2, continue patient on aspirin 81 mg once every day, Brilinta 90 mg orally twice every day, metoprolol 25 mg orally twice every day, Lipitor 80 mg orally once every day,Zetia 10 mg orally once every day, cardiology consultation. 2. CAD post ST elevation [place] last year with PCI of the LCx and LAD. Continue treatment as in paragraph #1. 3. Hypertension and hypertensive cardiovascular disease. Continue patient on metoprolol 25 mg orally twice every day, lisinopril 20 mg orally once every day, Spironolactone 25 mg orally once every day. 4. Hyperlipidemia. Continue patient on Lipitor 80 mg once every day along with Zetia 10 mg orally once every day. 5. GERD. Continue Pepcid once every day. 6. DVT prophylaxis. Currently on heparin drip. 7. GI prophylaxis. Continue Pepcid. 8. Observation.
[2019-04-30] MEDS ORDERED: NITROGLYCERIN OINT 1 INCH/GM PACKET TOPICAL SCH (12:00)
[2019-04-30] MEDS: SPIRONOLACTONE 25 MG TAB PO SCH (13:50)
[2019-04-30] MEDS ORDERED: ACETAMINOPHEN TAB 325 MG TAB PO PRN (14:44)
[2019-04-30] MEDS: METOPROLOL TARTRATE 25 MG TAB PO SCH (20:20)
[2019-04-30] MEDS: TICAGRELOR 90 MG TAB PO SCH (20:20)
[2019-04-30] MEDS ORDERED: EZETIMIBE 10 MG TAB PO SCH (21:00)
[2019-04-30] MEDS ORDERED: ATORVASTATIN 80 MG TAB PO SCH (21:00)
[2019-04-30 21:25] VITALS: RESP 18
--- NOTE | 2019-04-30 21:46 | P.CRDCN ---
History of Present Illness History of present illness: Patient interviewed and examined Impression Atypical chest discomfort with pounding in the chest when at high altitudes Very different from when he had his myocardial infarction in May 2018 Cardiac enzymes 3 normal for acute myocardial infarction Intermittent PVCs Old septal infarct with a very mildly reduced LV systolic function Plan May go home within the next 24 hours and an outpatient workup for CAD Continue Zetia plus atorvastatin Lipid panel and keep LDL well below 70 mg/dL Also suggest a period of acclimatization for at least 24 hours when at high altitudes along with adequate hydration states that he does not drink adequate fluids when at high altitudes Consider rhythm monitoring at that time Blood pressure monitoring at that time Oxygen therapy History Patient experiences pounding in the chest and shortness of breath at high- altitude especially when he goes to [facility]. His pounding begins usually on the fifth day No dizziness to loss of consciousness but symptoms are very different from when he had his acute myocardial infarction On examination Blood pressure 112/55 mmHg pulse rate of 50 is afebrile No JVD no carotid bruits Normal heart sounds no murmurs or gallop or rub Breath sounds are clear no rhonchi or crackles Abdomen soft Extremities warm edema Labs are reviewed and are within normal limits Lipid panel pending Cardiac enzymes 3 are pending Past Medical History Past Medical History: Coronary Artery Disease (CAD), GERD/Reflux, Hyperlipidemia, Hypertension, Myocardial Infarction ([place]), Prostate Disorder, Sleep Apnea/CPAP/BIPAP Last Myocardial Infarction Date:: 05/18/2018 History of Any Multi-Drug Resistant Organisms: None Reported Past Surgical History: Hernia Repair, Orthopedic Surgery Additional Past Surgical History / Comment(s): Rt knee arthroscopy > 15 years, stent to the LAD and left circumflex 05/2018 Past Anesthesia/Blood Transfusion Reactions: No Reported Reaction Past Psychological History: No Psychological Hx Reported Smoking Status: Never smoker Past Alcohol Use History: Occasional Additional Past Alcohol Use History / Comment(s): . Past Drug Use History: None Reported - Past Family History Father Family Medical History: Myocardial Infarction ([place]) Additional Family Medical History / Comment(s): Father and Fraternal grandfather both at age 62 of [place]. Mother Additional Family Medical History / Comment(s): Mother at age 76 from leukemia with history of diabetes. Sister(s) Additional Family Medical History / Comment(s): Patient has one sister with prediabetes. Patient does not have any brothers. Patient has 1 son and 2 daughter with no major medical problems. Medications and Allergies Home Medications Medication Instructions Recorded Confirmed Type Famotidine [Pepcid AC] 10 mg PO DAILY 05/18/18 04/30/19 History Aspirin 81 mg PO DAILY chew 05/22/18 04/30/19 Rx Atorvastatin [Lipitor] 80 mg PO HS #30 tab 05/22/18 04/30/19 Rx Metoprolol Tartrate [Lopressor] 25 mg PO BID #60 tab 05/22/18 04/30/19 Rx Nitroglycerin Sl Tabs [Nitrostat] 0.4 mg SUBLINGUAL Q5M PRN #30 tab 05/22/18 04/30/19 Rx Ticagrelor [Brilinta] 90 mg PO BID tab 05/22/18 04/30/19 Rx Ezetimibe [Zetia] 10 mg PO HS 04/30/19 04/30/19 History L.acidoph,Paracasei, B.lactis 1 cap PO DAILY 04/30/19 04/30/19 History [Probiotic] Lisinopril [Zestril] 20 mg PO DAILY 04/30/19 04/30/19 History Spironolactone [Aldactone] 25 mg PO DIRECTED 04/30/19 04/30/19 History acetaZOLAMIDE [Diamox] 250 mg PO DAILY 04/30/19 04/30/19 History Allergies Allergy/AdvReac Type Severity Reaction Status Date / Time No Known Allergies Allergy Verified 04/30/19 08:19 Physical Exam Vitals: Vital Signs Temp Pulse Pulse Pulse Resp BP BP 04/30/19 20:00 97.7 F 55 L 18 112/55 04/30/19 16:00 98.1 F 54 L 16 109/60 04/30/19 11:35 97.7 F 50 L 16 119/63 04/30/19 11:05 97.8 F 55 L 18 112/70 04/30/19 07:38 59 L 04/30/19 07:24 97.7 F 58 L 18 158/86 Pulse Ox 04/30/19 20:00 97 04/30/19 16:00 96 04/30/19 11:35 98 04/30/19 11:05 98 04/30/19 07:38 04/30/19 07:24 100 Intake and Output 04/30/19 04/30/19 04/30/19 06:59 14:59 22:59 Other: Voiding Method Toilet Toilet Weight 73.936 kg Results 04/30/19 07:46 04/30/19 07:46 Cardiac Enzymes 04/30/19 04/30/19 04/30/19 Range/Units 07:46 07:46 13:50 AST 48 (17-59) U/L Troponin I <0.012 <0.012 (0.000-0.034) ng/mL 04/30/19 Range/Units 16:19 AST (17-59) U/L Troponin I <0.012 (0.000-0.034) ng/mL Coagulation 04/30/19 04/30/19 Range/Units 07:46 16:19 PT 10.2 (9.0-12.0) sec APTT 25.3 73.5 H (22.0-30.0) sec CBC 04/30/19 Range/Units 07:46 WBC 8.1 (3.8-10.6) k/uL RBC 4.47 (4.30-5.90) m/uL Hgb 13.9 (13.0-17.5) gm/dL Hct 43.8 (39.0-53.0) % Plt Count 174 (150-450) k/uL Comprehensive Metabolic Panel 04/30/19 Range/Units 07:46 Sodium 142 (137-145) mmol/L Potassium 4.2 (3.5-5.1) mmol/L Chloride 111 H (98-107) mmol/L Carbon Dioxide 21 L (22-30) mmol/L BUN 21 H (9-20) mg/dL Creatinine 1.12 (0.66-1.25) mg/dL Glucose 126 H (74-99) mg/dL Calcium 8.9 (8.4-10.2) mg/dL AST 48 (17-59) U/L ALT 53 (21-72) U/L Alkaline Phosphatase 57 (38-126) U/L Total Protein 6.6 (6.3-8.2) g/dL Albumin 3.8 (3.5-5.0) g/dL Current Medications Generic Name Dose Route Start Last Admin Trade Name Freq PRN Reason Stop Dose Admin Acetaminophen 650 mg 04/30/19 14:44 04/30/19 14:54 Tylenol Tab PO 650 mg Q4HR PRN Administration Fever and/ or Pain Aspirin 81 mg 05/01/19 09:00 Aspirin PO DAILY [facility] Atorvastatin Calcium 80 mg 04/30/19 21:00 04/30/19 20:20 Lipitor PO 80 mg HS ANIKET Administration Ezetimibe 10 mg 04/30/19 21:00 04/30/19 20:20 Zetia PO 10 mg HS ANIKET Administration Famotidine 10 mg 05/01/19 09:00 Pepcid PO DAILY [facility] Lactobacillus Acidoph/Bulgaricus 1 each 05/01/19 09:00 Lactinex PO DAILY [facility] Lisinopril 20 mg 05/01/19 09:00 Zestril PO DAILY [facility] Metoprolol Tartrate 25 mg 04/30/19 21:00 04/30/19 20:20 Lopressor PO 25 mg BID [facility] Administration Nitroglycerin 0.4 mg 04/30/19 10:37 Nitrostat SUBLINGUAL Q5M PRN Chest Pain Spironolactone 25 mg 04/30/19 12:30 04/30/19 13:50 Aldactone PO Not Given DAILY [facility] Ticagrelor 90 mg 04/30/19 21:00 04/30/19 20:20 Brilinta PO 90 mg BID [facility] Administration Intake and Output 04/30/19 04/30/19 04/30/19 06:59 14:59 22:59 Other: Voiding Method Toilet Toilet Weight 73.936 kg Patient Weight 05/01/19 06:59 Weight 73.936 kg 04/30/19 07:46 04/30/19 07:46
[2019-05-01 06:09] LABS: Cholesterol 92 mg/dL (<200); HDL Cholesterol 34 mg/dL (40-60); LDL Cholesterol,Calculated 39 mg/dL (0-99); Triglycerides 97 mg/dL (<150)
[2019-05-01] MEDS ORDERED: FAMOTIDINE 20 MG TAB PO SCH (09:00)
[2019-05-01] MEDS ORDERED: ASPIRIN 325 MG TAB PO SCH (09:00)
[2019-05-01] MEDS ORDERED: ASPIRIN 81 MG PO SCH (09:00)
[2019-05-01] MEDS ORDERED: LISINOPRIL 20 MG TAB PO SCH (09:00)
[2019-05-01] MEDS ORDERED: LACTOBACILLUS ACIDOPH & BULGAR 1 EACH PACKET PO SCH (09:00)
--- NOTE | 2019-05-01 10:19 | P.PN ---
Subjective This is a pleasant 68-year-old male past medical history significant for coronary artery disease status post stent placement in the setting of an acute myocardial infarction status post stent placement to the totally occluded LAD and mid circumflex, hypertension, dyslipidemia and gastroesophageal reflux disease. He follows in the office with Dr. Cortes. He is seen and examined sitting up in the chair in no acute distress with his at the bedside. He denies any further symptoms of chest discomfort. Breathing is stable. No diz ziness, palpitations, nausea, vomiting or diaphoresis. Blood pressure 139/64 heart rate 53 afebrile maintaining oxygen saturation on room air. Laboratory data reviewed, cardiac enzymes negative 3. He states recently in September GENERAL: Well-appearing, well-nourished and in no acute distress. NECK: Supple without JVD or thyromegaly. LUNGS: Breath sounds clear to auscultation bilaterally. Respiration equal and unlabored. No wheezes, rales or rhonchi. HEART: Regular rate and rhythm without murmurs, rubs or gallops. S1 and S2 heard. EXTREMITIES: Normal range of motion, no edema. No clubbing or cyanosis. Peripheral pulses intact. ASSESSMENT Chest pain, atypical. An acute coronary event has been ruled out. Symptoms thought to be likely related to altitude changes. History of coronary artery disease in the setting of a myocardial infarction status post placement to the LAD and circumflex Hypertension Dyslipidemia PLAN Proceed with stress Cardiolite to assess for reversible cardiac ischemia. Agree with acclimation therapy when traveling to [place]. Continue to use oxygen when in [place]. If stress test is normal he may be discharged to follow up with Dr. Cortes. If abnormal we will consider coronary angiography. Nurse Practitioner note has been reviewed, I agree with a documented findings and plan of care. Patient was seen and examined. Objective - Vital Signs Vital signs: Vital Signs Temp 97.7 F 05/01/19 07:30 Pulse 53 L 05/01/19 07:30 Resp 18 05/01/19 08:00 BP 139/64 05/01/19 07:30 Pulse Ox 97 05/01/19 07:30 Intake & Output 04/30/19 05/01/19 05/01/19 18:59 06:59 18:59 Weight 73.936 kg Other: Voiding Method Toilet Toilet Toilet # Voids 1 - Labs CBC & Chem 7: 04/30/19 07:46 04/30/19 07:46 Labs: Abnormal Lab Results - Last 24 Hours (Table) 04/30/19 04/30/19 Range/Units 07:46 16:19 APTT 73.5 H (22.0-30.0) sec HDL Cholesterol 34 L (40-60) mg/dL
[2019-05-01 12:02] VITALS: BP 161/77; PULSE 62; TEMP 97.5
[2019-05-01] MEDS: SPIRONOLACTONE 25 MG TAB PO SCH (12:10)
[2019-05-01] MEDS: METOPROLOL TARTRATE 25 MG TAB PO SCH (12:10)
[2019-05-01] MEDS: TICAGRELOR 90 MG TAB PO SCH (12:11)
--- NOTE | 2019-05-01 12:26 | P.STRESS ---
- Stress Test Note Stress Test Results/Findings: Exam Performed: NM stress cardiolite complete Exam Date: 05/01/19 Reason for Exam: CHEST PAIN Height: 5 ft 10 in Weight: 73.936 kg Protocol: STRESS CARDIOLITE Stage: IV Duration of Exercise: 10:00 Resting Heart Rate: 61 Resting Blood Pressure: 158/77 Maximum Achieved Heart Rate: 140 Maximum Achieved Blood Pressure: 218/98 85% PMHR: 130 100% PMHR: 153 METS: 11.5 Technologist Comment: Stress Test Results/Findings: This is a 68-year-old gentleman with history of hypertension, previous myocar dial infarction, palpitation, hypercholesterolemia, being evaluated for cardiac status. Stress data: Baseline EKG showed a sinus rhythm with normal IA interval, QRS duration with evidence of old anteroseptal myocardial infarction. Blood pressure at rest is an 80 was 77 with pulse rate of 61. Patient walked on the Jt protocol for 10 minutes achieving a maximal rate of 140 with a blood pressure of 218/98. EKGs taken during and after exercise did not reveal any significant changes from baseline. Occasional PVCs were noted. Final impression: #1. Good exercise capacity #2. Negative stress test #3. Patient did not express any chest pain #4. Occasional PVCs were noted. #4. Report on the nuclear images to be given by the radiologist
--- NOTE | 2019-05-01 13:07 | NM ---
EXAMINATION TYPE: NM stress cardiolite complete DATE OF EXAM: 05/01/2019 COMPARISON: NONE HISTORY: Chest pain TECHNIQUE: After the intravenous administration of 10.8 mCi Tc 99m Sestamibi - Rest images obtained 50 minutes post injection. The patient exercised using a FRANCOIS protocol and 1 minute prior to peak exercise was injected with 25.3 mCi Tc 99m Sestamibi - Stress images obtained 20 minutes post injecti on. FINDINGS: There is some thinning of the cardiac apex on both rest and stress images. This can be a fixed defect from prior infarct. No stress-induced ischemic changes are evident. Gated wall motion is normal. Polar maps confirm the defect at the apex. Ejection fraction of 54% is p resent. IMPRESSION: 1. Fixed defect at the cardiac apex could be due to cardiac thinning or prior infarct. 2. No stress-induced ischemic changes.
--- NOTE | 2019-05-02 11:29 | EST ---
Stress Test Results/Findings: Exam Performed: [place] stress cardiolite complete Exam Date: 05/01/19 Reason for Exam: CHEST PAIN Height: 5 ft 10 in Weight: 73.936 kg Protocol: STRESS CARDIOLITE Stage: IV Duration of Exercise: 10:00 Resting Heart Rate: 61 Resting Blood Pressure: 158/77 Maximum Achieved Heart Rate: 140 Maximum Achieved Blood Pressure: 218/98 85% PMHR: 130 100% PMHR: 153 METS: 11.5 Technologist Comment: Stress Test Results/Findings: This is a 68-year-old gentleman with history of hypertension, previous myocardial infarction, palpitation, hypercholesterolemia, being evaluated for cardiac status. Stress data: Baseline EKG showed a sinus rhythm with normal NV interval, QRS duration with evidence of old anteroseptal myocardial infarction. Blood pressure at rest is an 80 was 77 with pulse rate of 61. Patient walked on the Jt protocol for 10 minutes achieving a maximal rate of 140 with a blood pressure of 218/98. EKGs taken during and after exercise did not reveal any significant changes from baseline. Occasional PVCs were noted. Final impression: #1. Good exercise capacity #2. Negative stress test #3. Patient did not express any chest pain #4. Occasional PVCs were noted. #4. Report on the nuclear images to be given by the radiologist HEATHER
--- NOTE | 2019-05-04 16:04 | P.DS ---
Providers Date of admission: 04/30/19 10:48 Expected date of discharge: 05/01/19 Attending physician: Tito Wilkins Consults: 04/30/19 10:38 Consult Physician Urgent Consulting Provider: [facility] Consult Reason/Comments: Unstable angina Do you want consulting provider notified?: Yes Primary care physician: [facility] Course: This is a 68-year-old male with a previous medical history significant for CAD post PCI of the proximal LAD and the distal left circumflex complex about a year ago in May 2018 after he developed a significant ST elevation [place] followed by a cardiac arrest with resuscitation and significant recovery after that with ischemic cardiomyopathy has been under the care of Dr. 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 EKG did not show any evidence of acute ST-T wave changes, it did show prior [place] in the past, d-dimer is elevated underwent CT angiography of the chest that was negative for poor embolism, because of the presentation was admitted to the hospital for evaluation by cardiology patient was seen by Dr. Cortes not to undergo had an echocardiogram his ejection fraction stated is about 49%, and patient stated that this is up from last year, patient also was seen at the [facility] and he had a stress echo back in September of this year that was negative for stress-induced ischemia. 05/01: Patient underwent Cardiolite stress test this morning and this has returned negative. Cardiology has cleared him for discharge home today. He denies having any chest pain or shortness of breath. Patient will be discharged home in stable condition. Discharge diagnoses: 1. Chest discomfort with recurrent PVCs in a patient with a prior history of CAD with ischemic cardiomyopathy post eventful ST elevation [place] a year ago followed by cardiac arrest and 2 stents in the proximal LAD and the distal LCx. Acute coronary syndrome ruled out. 2. CAD post ST elevation [place] last year with PCI of the LCx and LAD. 3. Hypertension and hypertensive cardiovascular disease. 4. Hyperlipidemia. 5. GERD. Discharge plan: Home Impression and plan of care have been directed as dictated by the signing physician. Iza Dunlap nurse practitioner acting as scribe for signing physician. Plan - Discharge Summary Discharge Rx Participant: Yes New Discharge Prescriptions: Continue Famotidine [Pepcid AC] 10 mg PO DAILY Aspirin 81 mg PO DAILY chew Atorvastatin [Lipitor] 80 mg PO HS #30 tab Metoprolol Tartrate [Lopressor] 25 mg PO BID #60 tab Nitroglycerin Sl Tabs [Nitrostat] 0.4 mg SUBLINGUAL Q5M PRN #30 tab PRN Reason: Chest Pain Ticagrelor [Brilinta] 90 mg PO BID tab acetaZOLAMIDE [Diamox] 250 mg PO DAILY Lisinopril [Zestril] 20 mg PO DAILY Spironolactone [Aldactone] 25 mg PO DIRECTED L.acidoph,Paracasei, B.lactis [Probiotic] 1 cap PO DAILY Ezetimibe [Zetia] 10 mg PO HS Discharge Medication List Famotidine [Pepcid AC] 10 mg PO DAILY 05/18/18 [History] Aspirin 81 mg PO DAILY chew 05/22/18 [Rx] Atorvastatin [Lipitor] 80 mg PO HS #30 tab 05/22/18 [Rx] Metoprolol Tartrate [Lopressor] 25 mg PO BID #60 tab 05/22/18 [Rx] Nitroglycerin Sl Tabs [Nitrostat] 0.4 mg SUBLINGUAL Q5M PRN #30 tab 05/22/18 [Rx] Ticagrelor [Brilinta] 90 mg PO BID tab 05/22/18 [Rx] Ezetimibe [Zetia] 10 mg PO HS 04/30/19 [History] L.acidoph,Paracasei, B.lactis [Probiotic] 1 cap PO DAILY 04/30/19 [History] Lisinopril [Zestril] 20 mg PO DAILY 04/30/19 [History] Spironolactone [Aldactone] 25 mg PO DIRECTED 04/30/19 [History] acetaZOLAMIDE [Diamox] 250 mg PO DAILY 04/30/19 [History] Follow up Appointment(s)/Referral(s): Misha Cortes MD [STAFF PHYSICIAN] - 2 Weeks Roberto Carlos Bran MD [Primary Care Provider] - 1 Week Discharge Disposition: HOME SELF-CARE
== END 2019-05-01 13:36 | disposition home or self-care (01) ==
LOC: EC 07:20 → 1SOBS 10:48
PROVIDERS: ADMIT Internal Medicine; ATTEND Internal Medicine
DX: R07.89 Other chest pain (principal); I49.3 Ventricular premature depolarization; I25.10 Atherosclerotic heart disease of native coronary artery without angina pectoris; I25.5 Ischemic cardiomyopathy; K21.9 Gastro-esophageal reflux disease without esophagitis; I11.9 Hypertensive heart disease without heart failure; G47.30 Sleep apnea, unspecified; E78.5 Hyperlipidemia, unspecified; R79.89 Other specified abnormal findings of blood chemistry; E78.00 Pure hypercholesterolemia, unspecified; N42.9 Disorder of prostate, unspecified; R61 Generalized hyperhidrosis; Z79.899 Other long term (current) drug therapy; Z79.02 Long term (current) use of antithrombotics/antiplatelets; Z79.82 Long term (current) use of aspirin; I25.2 Old myocardial infarction; Z86.74 Personal history of sudden cardiac arrest; Z95.5 Presence of coronary angioplasty implant and graft; Z99.89 Dependence on other enabling machines and devices; Z82.49 Family history of ischemic heart disease and other diseases of the circulatory system; Z83.3 Family history of diabetes mellitus; Z80.6 Family history of leukemia; Z80.9 Family history of malignant neoplasm, unspecified
CPT/HCPCS: 93005 ×3; 96366 ×2; 96376; 96365; 99291; 36415; 93017; 85379; 80061; 80053; 83735; 84484; 85025; 85610; 85730; 71046; 71275; 78452; G0378 ×2; A9500; J1644 ×2; Q9967

== ENCOUNTER 2020-02-29 18:20 | Observation (INO) | payer MEDICARE, OTHER ==
[2020-02-29 18:52] LABS: Basophils # (A) 0.1 k/uL (0-0.2); Basophils % (A) 1 %; Eosinophils # (A) 0.3 k/uL (0-0.7); Eosinophils % (A) 3 %; HCT 44.4 % (39.0-53.0); HGB 14.2 gm/dL (13.0-17.5); Lymphocytes # (A) 1.5 k/uL (1.0-4.8); Lymphocytes % (A) 18 %; MCHC 32.1 g/dL (31.0-37.0); MCV 96.6 fL (80.0-100.0); Mean Platelet Volume 9.2; Monocytes # (A) 0.6 k/uL (0-1.0); Monocytes % (A) 7 %; Neutrophils # (A) 5.8 k/uL (1.3-7.7); Neutrophils % (A) 70 %; Platelet Count 163 k/uL (150-450); RBC 4.59 m/uL (4.30-5.90); RDW 12.4 % (11.5-15.5); WBC 8.4 k/uL (3.8-10.6)
[2020-02-29 18:59] LABS: INR 0.9 (<1.2); Prothrombin Time 9.8 sec (9.0-12.0)
[2020-02-29 19:00] LABS: ALT 49 U/L (4-49); AST 52 U/L (17-59); African American GFR (CKD) >90 (>60 ml/min/1.73 sqM); Albumin 4.4 g/dL (3.5-5.0); Alkaline Phosphatase 62 U/L (38-126); Anion Gap 8 mmol/L; Blood Urea Nitrogen 21 mg/dL (9-20); Calcium 9.7 mg/dL (8.4-10.2); Carbon Dioxide 27 mmol/L (22-30); Chloride 102 mmol/L (98-107); Glucose 89 mg/dL (74-99); Magnesium 2.1 mg/dL (1.6-2.3); Non-African American GFR(CKD) 87 (>60 ml/min/1.73 sqM); Potassium 4.6 mmol/L (3.5-5.1); Sodium 137 mmol/L (137-145); Total Bilirubin 0.7 mg/dL (0.2-1.3); Total Protein 7.1 g/dL (6.3-8.2)
--- NOTE | 2020-02-29 19:10 | ED ---
Chest Pain HPI - General Chief Complaint: Chest Pain Stated Complaint: Chest pain Time Seen by Provider: 02/29/20 18:25 Source: patient Mode of arrival: ambulatory Limitations: no limitations - History of Present Illness Initial Comments: Patient is a 69-year-old male with past medical history of coronary artery disease who presents to emergency room with reported chest pain. Patient reports that he's had a chest pressure for several weeks. He does have a history of V. fib arrest in May 2018. Patient follow Dr. Cortes in office. He denies any associated nausea, vomiting or diaphoresis. No provocative factors. No associated shortness of breath. No lower extremity edema. Denies history of DVT or PE. Patient followed up with his primary care physician Dr. Bran for a routine appointment today. Told him about his chest pain. Dr. Bran completed in EKG, spoke with Dr. Cortes and recommended that the patient come in to the emergency department for admission. Patient denies any fevers or chills. No cough or hemoptysis. No other alleviating, precipitating or modifying factors - Related Data Home Medications Medication Instructions Recorded Confirmed Famotidine [Pepcid AC] 10 mg PO DAILY 05/18/18 02/29/20 Ezetimibe [Zetia] 10 mg PO HS 04/30/19 02/29/20 lisinopriL [Zestril] 20 mg PO BID 04/30/19 02/29/20 Previous Rx's Medication Instructions Recorded Aspirin 81 mg PO DAILY chew 05/22/18 Atorvastatin [Lipitor] 80 mg PO HS #30 tab 05/22/18 Metoprolol Tartrate [Lopressor] 25 mg PO BID #60 tab 05/22/18 Nitroglycerin Sl Tabs [Nitrostat] 0.4 mg SUBLINGUAL Q5M PRN #30 tab 05/22/18 Spironolactone [Aldactone] 12.5 mg PO DAILY #0 03/01/20 Allergies Allergy/AdvReac Type Severity Reaction Status Date / Time No Known Allergies Allergy Verified 02/29/20 20:07 Review of Systems ROS Statement: Those systems with pertinent positive or pertinent negative responses have been documented in the HPI. ROS Other: All systems not noted in ROS Statement are negative. EKG Findings - EKG Comments: EKG Findings:: EKG demonstrates sinus rhythm with PVCs. Rate of 68. MS interval 142. QRS 104. QTC of 429. No acute ST segment elevations or depressions. Incomplete right bundle branch block. Past Medical History Past Medical History: Coronary Artery Disease (CAD), GERD/Reflux, Hyperlipidemia, Hypertension, Myocardial Infarction ([place]), Prostate Disorder, Sleep Apnea/CPAP/BIPAP Last Myocardial Infarction Date:: 05/18/2018 History of Any Multi-Drug Resistant Organisms: None Reported Past Surgical History: Heart Catheterization With Stent, Hernia Repair, Orthoped ic Surgery Additional Past Surgical History / Comment(s): Rt knee arthroscopy > 15 years, stent to the LAD and left circumflex 05/2018 Past Anesthesia/Blood Transfusion Reactions: No Reported Reaction Past Psychological History: No Psychological Hx Reported Smoking Status: Never smoker Past Alcohol Use History: Occasional Past Drug Use History: None Reported - Past Family History Father Family Medical History: Myocardial Infarction ([place]) Additional Family Medical History / Comment(s): Father and Fraternal grandfather both at age 62 of [place]. Mother Additional Family Medical History / Comment(s): Mother at age 76 from leukemia with history of diabetes. Sister(s) Additional Family Medical History / Comment(s): Patient has one sister with prediabetes. Patient does not have any brothers. Patient has 1 son and 2 daughter with no major medical problems. General Exam Limitations: no limitations General appearance: alert, in no apparent distress Head exam: Present: atraumatic, normocephalic, normal inspection Eye exam: Present: normal appearance, PERRL, EOMI. Absent: scleral icterus, conjunctival injection, periorbital swelling ENT exam: Present: normal exam, mucous membranes moist Neck exam: Present: normal inspection. Absent: tenderness, meningismus, lymphadenopathy Respiratory exam: Present: normal lung sounds bilaterally. Absent: respiratory distress, wheezes, rales, rhonchi, stridor Cardiovascular Exam: Present: regular rate, normal rhythm, normal heart sounds. Absent: systolic murmur, diastolic murmur, rubs, gallop, clicks GI/Abdominal exam: Present: soft, normal bowel sounds. Absent: distended, tenderness, guarding, rebound, rigid Extremities exam: Present: normal inspection, full ROM, normal capillary refill. Absent: tenderness, pedal edema, joint swelling, calf tenderness Back exam: Present: normal inspection Neurological exam: Present: alert, oriented X3, CN II-XII intact Psychiatric exam: Present: normal affect, normal mood Skin exam: Present: warm, dry, intact, normal color. Absent: rash Course Vital Signs 02/29/20 02/29/20 02/29/20 18:23 19:00 20:00 Temperature 97.9 F Pulse Rate 67 70 69 Respiratory 18 Rate Blood Pressure 146/78 137/79 134/82 O2 Sat by Pulse 99 99 98 Oximetry 02/29/20 02/29/20 20:30 21:00 Temperature Pulse Rate 63 Respiratory 18 16 Rate Blood Pressure 127/75 O2 Sat by Pulse 98 Oximetry Chest Pain MDM - MDM Upon arrival the patient is placed into room 4. A thorough history and physical exam is performed. Patient is hooked up to continuous pulse ox and cardiac monitoring. 12-lead EKG is performed. Laboratory studies were conducted. Troponin is negative. Chest x-ray demonstrates no active cardio pulmonary disease. Patient has no active chest pain at this time. I did discuss diagnosis, differential and treatment options. Because the patient's history he will be heparinized and admitted to Dr. Bran. [facility] will be consulted. Patient will be made nothing by mouth at midnight for possible catheterization tomorrow Disposition Clinical Impression: Chest pain Disposition: ADMITTED IP TO THIS HOSP Condition: Good Is patient prescribed a controlled substance at d/c from ED?: No Decision to Admit Reason: Admit from EC Decision Date: 02/29/20 Decision Time: 19:53
--- NOTE | 2020-02-29 19:14 | XR ---
EXAMINATION TYPE: XR chest 2V DATE OF EXAM: 02/29/2020 COMPARISON: 04/30/2019 HISTORY: Chest pain TECHNIQUE: FINDINGS: Heart is normal. Lungs are clear. Costophrenic angles are clear. There are no hilar masses. There is spurring in the thoracic spine. There are chest leads. IMPRESSION: No active cardiopulmonary disease. Normal heart. No change.
[2020-02-29] MEDS ORDERED: HEPARIN SODIUM,PORCINE 5,000 UNIT/ML 1 ML VIAL IV PRN (19:53)
[2020-02-29] MEDS ORDERED: HEPARIN SODIUM,PORCINE 5,000 UNIT/ML 1 ML VIAL IV ONE (19:53)
[2020-02-29] MEDS ORDERED: NALOXONE 0.4 MG/ML 1 ML VIAL IV PRN (19:53)
[2020-02-29] MEDS ORDERED: HEPARIN SOD,PORK IN 0.45% NACL 25,000 UNIT in 0.45% NACL 1 250ML.BAG IV SCH (20:00)
[2020-02-29] MEDS ORDERED: NITROGLYCERIN SL TABS 0.4 MG TAB SUBLINGUAL PRN (21:25)
[2020-02-29] MEDS ORDERED: EZETIMIBE 10 MG TAB PO SCH (21:30)
[2020-02-29] MEDS ORDERED: ATORVASTATIN 80 MG TAB PO SCH (21:30)
[2020-02-29] MEDS ORDERED: TICAGRELOR 90 MG TAB PO SCH (21:30)
--- NOTE | 2020-02-29 22:34 | P.HPIM ---
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 Patient has been seen Dr. Cortes cardiology regular basis also ended up in [facility] recently in January for regular follow-up and had some workup no stress test was perform at the time no heart cath. Patient developed to have significant midsternal chest pain and discomfort for the last few days become slightly bit worse patient apparently has been cutting some wood and be more active than normal. He presented to the office today for his regular follow-up with these complaint of chest pain EKG showed significant change on the lateral leads and inferior leads compared to the last one done few month ago. Patient was referred and sent to the hospital started on heparin drip his first CK with troponin came back negative patient will be admitted to the hospital I contacted Dr. Cortes and have them aware of with: On patient will be kept nothing by mouth for possible heart cath tomorrow morning. Some of the cardiac of his chest pain that midsternal toward the left with mild cold sweat and nausea no syncope patient had mild shortness of breath and more tiredness with it. Review of Systems CONSTITUTIONAL: Well-developed no acute respiratory distress. EYES: No icterus sclerae, no conjunctivitis. EARS, NOSE, MOUTH, THROAT, and FACE: No sore throat, lymphadenopathy, carotid bruits or deformity. RESPIRATORY: Mild shortness of breath or wheezes. CARDIOVASCULAR: Positive chest pain no orthopnea no PND. GASTROINTESTINAL: No Abd pain, Nausea or vomiting, no Diarrhea or constipation, No GI Bleed, no distention or masses. GENITOURINARY: Negative for Hematuria or UTI, no kidney stones. INTEGUMENT/BREAST: Negative for any muscular injury with mild osteoarthritis.. HEMATOLOGIC/LYMPHATIC: Negative for bleed or purpura. MUSCULOSKELTAL: Negative for Myalgia or arthralgia. NEURLOGICAL: No LOC, Sz or syncope, blurred vision dizziness or abnormality.. BEHAVIORAL/PSYCH: Negative. ENDOCRINE: Negative. Past Medical History Past Medical History: Coronary Artery Disease (CAD), GERD/Reflux, Hyperlipidemia, Hypertension, Myocardial Infarction (ID), Prostate Disorder, Sleep Apnea/CPAP/BIPAP Last Myocardial Infarction Date:: 05/18/2018 History of Any Multi-Drug Resistant Organisms: None Reported Past Surgical History: Heart Catheterization With Stent, Hernia Repair, Orthopedic Surgery Additional Past Surgical History / Comment(s): Rt knee arthroscopy > 15 years, stent to the LAD and left circumflex 05/2018 Past Anesthesia/Blood Transfusion Reactions: No Reported Reaction Past Psychological History: No Psychological Hx Reported Smoking Status: Never smoker Past Alcohol Use History: Occasional Past Drug Use History: None Reported - Past Family History Father Family Medical History: Myocardial Infarction (ID) Additional Family Medical History / Comment(s): Father and Fraternal grandfather both at age 62 of ID. Mother Additional Family Medical History / Comment(s): Mother at age 76 from leukemia with history of diabetes. Sister(s) Additional Family Medical History / Comment(s): Patient has one sister with prediabetes. Patient does not have any brothers. Patient has 1 son and 2 daughter with no major medical problems. Medications and Allergies Home Medications Medication Instructions Recorded Confirmed Type Famotidine [Pepcid AC] 10 mg PO DAILY 05/18/18 02/29/20 History Aspirin 81 mg PO DAILY chew 05/22/18 02/29/20 Rx Atorvastatin [Lipitor] 80 mg PO HS #30 tab 05/22/18 02/29/20 Rx Metoprolol Tartrate [Lopressor] 25 mg PO BID #60 tab 05/22/18 02/29/20 Rx Nitroglycerin Sl Tabs [Nitrostat] 0.4 mg SUBLINGUAL Q5M PRN #30 tab 05/22/18 02/29/20 Rx Ticagrelor [Brilinta] 90 mg PO BID tab 05/22/18 02/29/20 Rx Ezetimibe [Zetia] 10 mg PO HS 04/30/19 02/29/20 History Spironolactone [Aldactone] 25 mg PO DAILY 04/30/19 02/29/20 History lisinopriL [Zestril] 20 mg PO BID 04/30/19 02/29/20 History Allergies Allergy/AdvReac Type Severity Reaction Status Date / Time No Known Allergies Allergy Verified 02/29/20 20:07 Physical Exam Vitals: Vital Signs Temp Pulse Resp BP Pulse Ox 02/29/20 20:30 63 18 127/75 98 02/29/20 20:00 69 134/82 98 02/29/20 19:00 70 137/79 99 02/29/20 18:23 97.9 F 67 18 146/78 99 Intake and Output 02/29/20 02/29/20 02/29/20 06:59 14:59 22:59 Other: Weight 74.389 kg General Appearance: Alert, cooperative, no distress, appears stated age. Neck HEENT: Supple, no lymphadenopathy, no thyroid enlargement, no carotid bruits. Lungs: Clear to auscultation without crackles or wheezes no rhonchi, no deformity. Chest Wall: Chest wall normal expansion with deep inspiration no tenderness and no deformity was found on exam, no costochondral pain or discomfort. Heart: Regular rate and rhythm, S1, S2 normal, no murmur, rub or gallop. Back: Symmetric, no curvature, ROM normal, no CVA tenderness. Abdomen: Soft, non-tender, bowel sounds active all four quadrants, no masses, no organomegaly. Extremities: Extremities normal, atraumatic, no cyanosis or edema. Pulses: 2+ and symmetric. Skin: Skin color, texture, tugor normal, no rashes or lesions. Neurologic: Alert oriented x3 cranial nerves II through XII intact, no motor deficit, no abnormal balance or gait. Results CBC & Chem 7: 02/29/20 18:43 02/29/20 18:43 Labs: Abnormal Lab Results - Last 24 Hours (Table) 02/29/20 Range/Units 18:43 BUN 21 H (9-20) mg/dL Thrombosis Risk Factor Assmnt - DVT/VTE Prophylaxis DVT/VTE Prophylaxis: Mechanical Prophylaxis ordered Assessment and Plan Assessment: 1 unstable angina: Patient continued to have persistent pain CK with troponin was negative EKG had slight change compared to few month ago. Patient be kept nothing by mouth continue heparin drip consult cardiology and plan for heart cath in the morning. 2 significant coronary disease post to angioplasty and stent placement of the LAD and circumflex coronary artery from May 2018, patient remain on secondary prevention has been doing very well been on Brilinta, aspirin, lisinopril, metoprolol, Zetia and atorvastatin. Continue current medication. 3 mild ischemic cardiomyopathy: Echocardiogram will be repeated as well patient to continue spironolactone and furosemide. 4 mild gynecomastia: With slight discomfort in both right and left consistent with side effect of Aldactone will decrease the dose to half tablet 25 mg a day. 5 hypertension: Remain on lisinopril and metoprolol. 6 hyperlipidemia: Continue patient on atorvastatin and Zetia. 7 arrhythmia and ventricular tachycardia from 2018, no further sign and symptoms since dialysis happen shortly after angioplasty and stent placement from a year ago. 8 GI prophylaxis: Patient be on Pepcid 20 mg daily. 9 DVT prophylaxis: Continue patient on heparin drip for now. CODE STATUS: Full code. Admit patient to observation status for 1-2 nights.
[2020-02-29] MEDS: lisinopriL 20 MG TAB PO SCH (22:53)
[2020-03-01 07:51] VITALS: RESP 20; TEMP 98.1
[2020-03-01 08:28] LABS: Basophils % (A) 0 %; Eosinophils # (A) 0.2 k/uL (0-0.7); Eosinophils % (A) 2 %; HCT 40.9 % (39.0-53.0); HGB 13.3 gm/dL (13.0-17.5); Lymphocytes % (A) 9 %; MCH 31.1 pg (25.0-35.0); MCHC 32.4 g/dL (31.0-37.0); Mean Platelet Volume 9.2; Monocytes # (A) 0.6 k/uL (0-1.0); Monocytes % (A) 6 %; Neutrophils # (A) 8.3 k/uL (1.3-7.7); Neutrophils % (A) 81 %; Platelet Count 143 k/uL (150-450); RBC 4.26 m/uL (4.30-5.90); RDW 12.4 % (11.5-15.5); WBC 10.2 k/uL (3.8-10.6)
--- NOTE | 2020-03-01 08:31 | CONS ---
CONSULTATION Mr. Novoa is a 69-year-old male who presented with symptoms of chest discomfort. The patient has a known history of coronary artery disease, presented in 2018 with a myocardial infarction and underwent stenting of the LAD and the circumflex. He has done quite well since that time. Has been exercising on a regular basis, active without any difficulty. He was seen at Dr. Bran's office yesterday with some chest discomfort. The discomfort is in the lower chest, and somewhat reproducible by palpation. The patient has been quite active physically, cutting wood and using his bike without any difficulty. He denies any significant dizziness. He has prior history of ventricular ectopic activity that has been stable. He denies any dizziness or syncope. He has no PND, orthopnea, or peripheral edema. He has been seen at the [facility] and has underwent an echocardiogram and was found to have an ejection fraction of 53%. His coronary risk factors are remarkable for hypertension, hyperlipidemia. He is a nonsmoker, nondiabetic. MEDICATION: Include Zetia 10 mg daily, Zestril 20 mg twice a day, Brilinta 90 mg twice a day, Aldactone 25 mg daily, Lopressor 25 mg twice a day, Pepcid 10 mg daily, Lipitor 80 mg daily, aspirin once a day. REVIEW OF SYSTEMS: RESPIRATORY SYSTEM: He has no recent wheezing. No cough. No history of obstructive lung disease. GI SYSTEM: No recent GI bleeding. No peptic ulcer disease. SYSTEM: No dysuria or hematuria. NERVOUS SYSTEM: No stroke or seizure. PHYSICAL EXAMINATION: He is a 69-year-old male, alert, oriented, no apparent distress. Blood pressure running in 110 to 120s with a heart rate in the 60s. HEAD: Normocephalic. Eyes sclerae anicteric. NECK: Good carotid upstroke. No bruit, no jugular venous distention. LUNGS: Clear to auscultation. HEART: Regular rhythm S1, S2. No S3. No S4. No murmur or rub. ABDOMEN: Soft. Nontender. Positive bowel sounds. No organomegaly. EXTREMITIES: No edema. Intact pulses. MUSCULOSKELETAL: He has mild reproducible pain at the xiphoid. LAB DATA: Revealed troponin less than 0.012 for 2 samples, BUN creatinine 21 and 0.9. Potassium 4.6. NT proBNP of 197. Hemoglobin of 14.2. IMAGING: Chest x-ray revealed no acute infiltrate. EKG revealed a sinus mechanism, left axis RSR prime with poor R wave progression from V1 to V4 representing and old anterior myocardial infarction. IMPRESSION: 1. Chest discomfort. Has some atypical features for ischemic heart disease, no evidence of acute coronary syndrome in a patient with known history of coronary artery disease and a good exercise tolerance. 2. History of prior myocardial infarction with mild cardiomyopathy, improved. 3. History of hypertension. 4. Hyperlipidemia. RECOMMENDATION: I had a long discussion with the patient and his regarding the options. I discussed with him the option of cardiac catheterization versus stress testing. The rationale behind both approaches were discussed with them in detail. He is in favor of proceeding with a stress testing. I will stop the heparin. If there is evidence of abnormal stress testing, then cardiac catheterization will be done. Thank you for this consult. We will follow with you. GALINA / MURRAY: [id number] /
[2020-03-01 08:33] LABS: Partial Thromboplastin Time 40.2 sec (22.0-30.0); Prothrombin Time 10.3 sec (9.0-12.0)
[2020-03-01] MEDS ORDERED: ASPIRIN 81 MG PO SCH (09:00)
[2020-03-01] MEDS ORDERED: SPIRONOLACTONE 25 MG TAB PO SCH (09:00)
[2020-03-01] MEDS ORDERED: FAMOTIDINE 20 MG TAB PO SCH (09:00)
[2020-03-01] MEDS ORDERED: METOPROLOL TARTRATE 25 MG TAB PO SCH (09:00)
[2020-03-01 09:34] LABS: African American GFR (CKD) >90 (>60 ml/min/1.73 sqM); Anion Gap 5 mmol/L; Blood Urea Nitrogen 20 mg/dL (9-20); Calcium 9.2 mg/dL (8.4-10.2); Carbon Dioxide 29 mmol/L (22-30); Chloride 103 mmol/L (98-107); Glucose 95 mg/dL (74-99); Non-African American GFR(CKD) >90 (>60 ml/min/1.73 sqM); Potassium 4.6 mmol/L (3.5-5.1); Sodium 137 mmol/L (137-145)
--- NOTE | 2020-03-01 10:14 | P.PN ---
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 Patient has been seen Dr. Cortes cardiology regular basis also ended up in [facility] recently in January for regular follow-up and had some workup no stress test was perform at the time no heart cath. Patient developed to have significant midsternal chest pain and discomfort for the last few days become slightly bit worse patient apparently has been cutting some wood and be more active than normal. He presented to the office today for his regular follow-up with these complaint of chest pain EKG showed significant change on the lateral leads and inferior leads compared to the last one done few month ago. Patient was referred and sent to the hospital started on heparin drip his first CK with troponin came back negative patient will be admitted to the hospital I contacted Dr. Cortes and have them aware of with: On patient will be kept nothing by mouth for possible heart cath tomorrow morning. Some of the cardiac of his chest pain that midsternal toward the left with mild cold sweat and nausea no syncope patient had mild shortness of breath and more tiredness with it. 03/01: Patient has been seen by Dr. 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 Acute coronary syndrome has been ruled out and heparin drip discontinued. Patient has been afebrile, heart rate 63, blood pressure 137/78, pulse ox 98% on room air. WBC 10.2, hemoglobin 13.3, platelet count 143. Electrolytes and renal function all normal. Troponins negative on 2 draws. Stress echo is pending. Review of Systems CONSTITUTIONAL: Well-developed no acute respiratory distress. Denies fever, denies chills. EYES: No icterus sclerae, no conjunctivitis. EARS, NOSE, MOUTH, THROAT, and FACE: No sore throat, lymphadenopathy, carotid bruits or deformity. RESPIRATORY: Mild shortness of breath or wheezes. CARDIOVASCULAR: Positive chest pain no orthopnea no PND. GASTROINTESTINAL: No Abd pain, Nausea or vomiting, no Diarrhea or constipation, No GI Bleed, no distention or masses. GENITOURINARY: Negative for Hematuria or UTI, no kidney stones. INTEGUMENT/BREAST: Negative for any muscular injury with mild osteoarthritis.. HEMATOLOGIC/LYMPHATIC: Negative for bleed or purpura. MUSCULOSKELTAL: Negative for Myalgia or arthralgia. NEURLOGICAL: No LOC, Sz or syncope, blurred vision dizziness or abnormality.. BEHAVIORAL/PSYCH: Negative. ENDOCRINE: Negative. Physical Examination General Appearance: Alert, cooperative, no distress, appears stated age. Resting in bed. Neck HEENT: Supple, no lymphadenopathy, no thyroid enlargement, no carotid bruits. Lungs: Clear to auscultation without crackles or wheezes no rhonchi, no deformity. Chest Wall: Chest wall normal expansion with deep inspiration no tenderness and no deformity was found on exam, no costochondral pain or discomfort. Heart: Regular rate and rhythm, S1, S2 normal, no murmur, rub or gallop. Back: Symmetric, no curvature, ROM normal, no CVA tenderness. Abdomen: Soft, non-tender, bowel sounds active all four quadrants, no masses, no organomegaly. Extremities: Extremities normal, atraumatic, no cyanosis or edema. Pulses: 2+ and symmetric. Skin: Skin color, texture, tugor normal, no rashes or lesions. Neurologic: Alert oriented x3 cranial nerves II through XII intact, no motor deficit, no abnormal balance or gait. Assessment and Plan 1 unstable angina. Consult with cardiology appreciated. Stress echo today. 2 significant coronary disease post to angioplasty and stent placement of the LAD and circumflex coronary artery from May 2018, patient remain on secondary prevention has been doing very well been on Brilinta, aspirin, lisinopril, metoprolol, Zetia and atorvastatin. Continue current medication. 3 mild ischemic cardiomyopathy: Echocardiogram recently done at [facility], continue spironolactone and furosemide. 4 mild gynecomastia: With slight discomfort in both right and left consistent with side effect of Aldactone will decrease the dose to half tablet to 12.5 mg a day. 5 hypertension: Remain on lisinopril and metoprolol. 6 hyperlipidemia: Continue patient on atorvastatin and Zetia. 7 arrhythmia and ventricular tachycardia from 2018, no further sign and symptoms since dialysis happen shortly after angioplasty and stent placement from a year ago. 8 GI prophylaxis: Patient be on Pepcid 20 mg daily. 9 DVT prophylaxis: Heparin gtt discontinued. CODE STATUS: Full code. Discharge plan: home Impression and plan of care have been directed as dictated by the signing physician. Iza Dunlap nurse practitioner acting as scribe for signing physician. Objective - Vital Signs Vital signs: Vital Signs Temp 98.1 F 03/01/20 07:50 Pulse 63 03/01/20 07:50 Resp 20 03/01/20 07:50 BP 137/78 03/01/20 07:50 Pulse Ox 98 03/01/20 07:50 Intake & Output 02/29/20 03/01/20 03/01/20 18:59 06:59 18:59 Intake Total 53.562 Balance 53.562 Weight 74.389 kg 74.389 kg Intake: Intake, IV Titration 53.562 Amount Heparin Sod,Pork in 0.45% 53.562 NaCl 25,000 unit In 0.45 % NaCl 1 250ml.bag @ 12 UNITS/KG/HR 8.927 mls/hr IV .Q24H [facility] Rx#: [id number] Other: Voiding Method Toilet # Voids 1 - Labs CBC & Chem 7: 03/01/20 08:02 03/01/20 08:02 Labs: Abnormal Lab Results - Last 24 Hours (Table) 02/29/20 03/01/20 Range/Units 18:43 01:01 APTT 66.4 H (22.0-30.0) sec BUN 21 H (9-20) mg/dL
[2020-03-01 12:25] VITALS: BP 122/78; PULSE 77
[2020-03-01] MEDS: lisinopriL 20 MG TAB PO SCH (12:35)
--- NOTE | 2020-03-01 14:16 | EST ---
EXERCISE STRESS DATE OF SERVICE: March 01, 2020 AGE: 69 SEX: M HT: 70" WT: 164 lbs PROTOCOL: Stress echo STAGE: 3 DURATION OF EXERCISE: 9 minutes HEART RATE REST: 78 BLOOD PRESSURE REST: 138/65 MAXIMUM HEART RATE ACHIEVED: 140 MAXIMUM BLOOD PRESSURE: 192/77 85% MPHR: 129 100% MPHR: 152 METS: 10.3 INDICATIONS: Chest pain. STRESS DATA: Heart rate 78, pressure is 138/65 mmHg. Baseline EKG showed sinus mechanism with incomplete RBBB. The patient exercised on the treadmill according to Jt protocol for a total of 9 minutes and achieved 10.3 METS. Max heart rate was 140 which is about 92% of maximum predicted heart rate maximal blood pressure was 192/77 mmHg. Clinically the patient did not have any symptoms of chest pain or chest discomfort during the testing or on recovery. The EKG did show that the patient went into complete RBBB at the peak of the heart rate and on recovery it was resolved. On recovery, no significant ST or T-wave abnormalities concerning for ischemia. ECHOCARDIOGRAM IMAGES: On echocardiogram images from parasternal long axis view, parasternal short axis, apical 4 chamber and apical 2 chamber were obtained as the baseline images, at the peak of the heart rate as well as on recovery and the echo showed good augmentation in the left ventricular systolic function without any evidence of wall motion abnormalities concerning for ischemia. CONCLUSION: 1. Excellent exercise tolerance next. 2. Normal EKG in response to exercise. 3. Normal echocardiogram in response to exercise. 4. Essentially normal stress echocardiogram for the patient. MMODL / IJN: [id number] /
--- NOTE | 2020-03-01 14:27 | P.DS ---
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 Patient has been seen Dr. Cortes cardiology regular basis also ended up in [facility] recently in January for regular follow-up and had some workup no stress test was perform at the time no heart cath. Patient developed to have significant midsternal chest pain and discomfort for the last few days become slightly bit worse patient apparently has been cutting some wood and be more active than normal. He presented to the office today for his regular follow-up with these complaint of chest pain EKG showed significant change on the lateral leads and inferior leads compared to the last one done few month ago. Patient was referred and sent to the hospital started on heparin drip his first CK with troponin came back negative patient will be admitted to the hospital I contacted Dr. Cortes and have them aware of with: On patient will be kept nothing by mouth for possible heart cath tomorrow morning. Some of the cardiac of his chest pain that midsternal toward the left with mild cold sweat and nausea no syncope janet main had mild shortness of breath and more tiredness with it. 03/01: Patient has been seen by Dr. 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 Acute coronary syndrome has been ruled out and heparin drip discontinued. Patient has been afebrile, heart rate 63, blood pressure 137/78, pulse ox 98% on room air. WBC 10.2, hemoglobin 13.3, platelet count 143. Electrolytes and renal function all normal. Troponins negative on 2 draws. Stress echo is negative and patient was cleared for discharge by cardiology. Patient will be discharged home today in stable condition. Discharge diagnoses: 1 unstable angina 2 significant coronary disease post to angioplasty and stent placement of the LAD and circumflex coronary artery from May 2018 3 mild ischemic cardiomyopathy 4 mild gynecomastia 5 hypertension 6 hyperlipidemia 7 arrhythmia and ventricular tachycardia from 2018 Discharge plan: home Impression and plan of care have been directed as dictated by the signing physician. Iza Dunlap nurse practitioner acting as scribe for signing physician. Patient Condition at Discharge: Good Plan - Discharge Summary New Discharge Prescriptions: Continue Famotidine [Pepcid AC] 10 mg PO DAILY Aspirin 81 mg PO DAILY chew Atorvastatin [Lipitor] 80 mg PO HS #30 tab Metoprolol Tartrate [Lopressor] 25 mg PO BID #60 tab Nitroglycerin Sl Tabs [Nitrostat] 0.4 mg SUBLINGUAL Q5M PRN #30 tab PRN Reason: Chest Pain lisinopriL [Zestril] 20 mg PO BID Ezetimibe [Zetia] 10 mg PO HS Changed Spironolactone [Aldactone] 12.5 mg PO DAILY #0 Discontinued Ticagrelor [Brilinta] 90 mg PO BID tab Discharge Medication List Famotidine [Pepcid AC] 10 mg PO DAILY 05/18/18 [History] Aspirin 81 mg PO DAILY chew 05/22/18 [Rx] Atorvastatin [Lipitor] 80 mg PO HS #30 tab 05/22/18 [Rx] Metoprolol Tartrate [Lopressor] 25 mg PO BID #60 tab 05/22/18 [Rx] Nitroglycerin Sl Tabs [Nitrostat] 0.4 mg SUBLINGUAL Q5M PRN #30 tab 05/22/18 [Rx] Ezetimibe [Zetia] 10 mg PO HS 04/30/19 [History] lisinopriL [Zestril] 20 mg PO BID 04/30/19 [History] Spironolactone [Aldactone] 12.5 mg PO DAILY #0 03/01/20 [Rx] Follow up Appointment(s)/Referral(s): Misha Cortes MD [STAFF PHYSICIAN] - 03/08/20 4:00 pm Roberto Carlos Bran MD [Primary Care Provider] - 03/11/20 10:00 am (Nesha RICCI) Patient Instructions/Handouts: Chest Pain (DC) Discharge Disposition: HOME SELF-CARE
== END 2020-03-01 15:32 | disposition home or self-care (01) ==
LOC: EC 18:20 → 3NCARDOBS 19:53
PROVIDERS: ADMIT Internal Medicine Geriatric Medicine; ATTEND Internal Medicine Geriatric Medicine
DX: I25.110 Atherosclerotic heart disease of native coronary artery with unstable angina pectoris (principal); Z86.74 Personal history of sudden cardiac arrest; K21.9 Gastro-esophageal reflux disease without esophagitis; E78.5 Hyperlipidemia, unspecified; I25.5 Ischemic cardiomyopathy; N62 Hypertrophy of breast; I47.2 Ventricular tachycardia; I49.9 Cardiac arrhythmia, unspecified; I10 Essential (primary) hypertension; I25.2 Old myocardial infarction; G47.30 Sleep apnea, unspecified; Z99.89 Dependence on other enabling machines and devices; Z95.5 Presence of coronary angioplasty implant and graft; N42.9 Disorder of prostate, unspecified; Z79.899 Other long term (current) drug therapy; Z79.82 Long term (current) use of aspirin; Z79.02 Long term (current) use of antithrombotics/antiplatelets; Z82.49 Family history of ischemic heart disease and other diseases of the circulatory system; Z83.3 Family history of diabetes mellitus; Z80.6 Family history of leukemia
CPT/HCPCS: 96366 ×2; 96376; 96365; 99285; 36415; 93005; 93351; 83880; 80053; 80048; 83735; 84484 ×2; 85025 ×2; 85610 ×2; 85730 ×2; 71046; G0378 ×2; J1644 ×2

== ENCOUNTER → 2021-07-30 | Outpatient (CLI) | payer MEDICARE, OTHER ==
[~2021-07-30] MED LIST: BAMLANIVIMAB (EUA) 700 MG, ETESEVIMAB (EUA) 1,400 MG in SODIUM CHLORIDE 0.9% 100 ML IVPB ONE; SODIUM CHLORIDE 0.9% 50 ML IVPB ONE; SODIUM CHLORIDE 0.9% 500 ML 500 ML in EMPTY BAG 1 BAG IV PRN
[2021-07-30 11:01] VITALS: RESP 16; TEMP 98.3
[2021-07-30 12:03] VITALS: BP 107/40; PULSE 63
== END ==
LOC: PROCWHC3 10:03
PROVIDERS: ATTEND Internal Medicine Geriatric Medicine
DX: U07.1 COVID-19 (principal)
CPT/HCPCS: 96360; J3490; M0245

== ENCOUNTER 2025-01-23 10:41 | Day surgery (SDC) | payer MEDICARE, OTHER ==
[2025-01-23 12:29] VITALS: TEMP 98
[2025-01-23] MEDS: LACTATED RINGERS 1,000 ML IV SCH (12:33)
[2025-01-23] MEDS: IV FLUID CONTINUATION 1,000 ML IV ONE ×2 (12:35→13:02)
[2025-01-23] MEDS ORDERED: PROPOFOL 10 MG/ML 20 ML VIAL IV ONE (13:03)
--- NOTE | 2025-01-23 13:26 | P.PCN ---
Date of Procedure: 01/23/25 Procedure(s) Performed: BRIEF HISTORY: Patient is a 74-year-old pleasant white male scheduled for an elective colonoscopy as a part of screening for colon cancer. PROCEDURE PERFORMED: Colonoscopy. PREOPERATIVE DIAGNOSIS: Screening for colon cancer. IV sedation per Anesthesia. PROCEDURE: After informed consent was obtained, the patient, was brought into the endoscopy unit. IV sedation was administered by Anesthesia under continuous monitoring. Digital rectal examination was normal. Initially the Olympus CF-160 flexible video colonoscope was then inserted in the rectum, gradually advanced into the transverse colon further advancement was not possible. The scope was removed and a pediatric colonoscopy was then inserted in the rectum and gradually advanced into the cecum cecum with moderate to severe difficulty. Careful examination was performed as the scope was gradually being withdrawn. I leocecal valve and the appendiceal orifice were visualized and appeared normal. Prep was excellent. Mucosa of the cecum, ascending colon, transverse colon, descending colon, sigmoid colon, and rectum appeared normal. Scattered sigmoid diverticulosis.. Retroflexion was performed in the rectum and no lesions were seen. The patient tolerated the procedure well. IMPRESSION: Normal-appearing colon from rectum to cecum with no evidence of colorectal neoplasia Scattered sigmoid diverticulosis. RECOMMENDATIONS: Findings of this examination were discussed with the patient as well as his family.. He was advised to have repeat screening colonoscopy at age 81
[2025-01-23 13:49] VITALS: BP 126/74; PULSE 51; RESP 14
== END 2025-01-23 14:04 | disposition home or self-care (01) ==
LOC: ORWHC2ENDO 10:41
PROVIDERS: ATTEND Internal Medicine Gastroenterology
DX: Z12.11 Encounter for screening for malignant neoplasm of colon (principal); K57.30 Diverticulosis of large intestine without perforation or abscess without bleeding; I10 Essential (primary) hypertension; I25.10 Atherosclerotic heart disease of native coronary artery without angina pectoris; Z79.899 Other long term (current) drug therapy
CPT/HCPCS: J2704; G0121